=== PATIENT | female | born 1980 | race Hispanic/Latino ===

== ENCOUNTER 2018-05-31 19:19 | Emergency (ER) | payer OTHER ==
[~2018-05-31] VITALS: Ht 149.9 cm; Wt 68.9 kg
[2018-05-31 21:39] LABS: CLARITY,URINE SL CLOUDY (CLEAR); COLOR,URINE YELLOW (YELLOW); LEUKOCYTE ESTERASE ,URINE TRACE (NEGATIVE); NITRITE,URINE NEGATIVE (NEGATIVE)
[2018-05-31 21:40] LABS: BILIRUBIN,URINE NEGATIVE (NEGATIVE); KETONES,URINE NEGATIVE (NEGATIVE); PROTEIN,URINE DIPSTICK TRACE (NEGATIVE); URINE UROBILINOGEN 0.2 mg/dL (0.2 - 1)
[2018-05-31 21:41] LABS: PREGNANCY TEST, URINE NEGATIVE (NEGATIVE)
[2018-05-31 21:55] LABS: BACTERIA,URINE RARE /HPF; EPITHELIAL CELLS,URINE MODERATE /LPF; MUCUS,URINE MANY (RARE)
[2018-05-31] MEDS ORDERED: PHENAZOPYRIDINE HCL 100 MG TAB PO ONE (22:15)
[2018-05-31] MEDS ORDERED: TRIMETHOPRIM/SULFAMETHOXAZOLE 160-800 MG TAB PO ONE (22:15)
[2018-05-31] MEDS ORDERED: BACTRIM DS TAB1 EACH PO (22:16)
[2018-05-31] MEDS ORDERED: PYRIDIUM100 MG PO (22:16)
[2018-05-31 22:33] VITALS: BP 114/78
== END 2018-05-31 22:47 | disposition home or self-care (01) ==
LOC: ER 19:19
DX: R10.30 Lower abdominal pain, unspecified (principal); N30.90 Cystitis, unspecified without hematuria
CPT/HCPCS: 81001; 81025; 99283

== ENCOUNTER 2020-02-12 08:54 | Emergency (ER) | payer MEDICARE, OTHER ==
[~2020-02-12] VITALS: Ht 149.9 cm; Wt 77.1 kg
[~2020-02-12 08:54] MED LIST: BACTRIM DS TAB1 EACH PO; PYRIDIUM100 MG PO
--- OUTSIDE RECORDS SUMMARY | 2020-02-12 08:57 | XMS REPORT | Continuity of Care Document ---
Author Author [facility] t Organization [facility] t Address [address] [place] [address] Phone Unavailable Care Team Providers Care Construction Teacher Name Role Phone CLINT EARLY, Kelli DON PCP Jacy Gilliam MD Attphys Payers Payer Name Policy Type Policy Number Effective Date Expiration Date Melita Davila Medicaid [id number] 2011 00:00:00 [facility] Problems This patient has no known problems. Allergies, Adverse Reactions, Alerts Allergy Name Allergy Type Status Severity Reaction(s) Onset Date Inacti ve Date Treating Clinician Comments Source SEAFOOD DA Active SV 2019-07-27 00:00:00 [facility] Levofloxacin Allergy to Substance Active 2018-05-31 00:00:0 0 [facility] levofloxacin DA Active MO 2015-04-20 00:00:00 [facility] Medications Ordered Medication Name Filled Medication Name Start Date Stop Da te Current Medication? Ordering Clinician Indication Dosage Frequency Signature (SIG) Comments Components Source Sulfamethoxazole/Trimethoprim (Bactrim Ds Tablet) 1 Ea ch Tablet Sulfamethoxazole/Trimethoprim (Bactrim Ds Tablet) 1 Each Tablet 2018-05-31 00:00:00 2018-06-10 00:00:00 No Nanette Brandt Md 1 Twic e A Day [facility] Phenazopyridine Hcl (Pyridium) 100 Mg Tablet Phenazopy ridine Hcl (Pyridium) 100 Mg Tablet 2018-05-31 00:00:00 2018-06-03 00:00:00 Jazmin Brandt Md 100 Three Times A Day [facility] Procedures This patient has no known procedures. Encounters Start Date/Time End Date/Time En[facility] ID Source 2019-04-25 10:26:56 Outpatient [facility] [id number] 2019-10-10 15:09:11 2019-10-10 16:35:46 Office Visit Buster Augustine [facility] [id number] 2019-06-06 15:59:21 2019-06-06 16:37:27 Office Visit Buster Augustine [facility] [id number] 2018-05-31 19:19:00 2018-05-31 22:47:00 Departed Emergency Room [facility] [id number] [facility] Results Test Description Test Time Test Comments Results Result Comments Source - XR FOOT 3 + V LT 2019-01-28 15:42:00 Name: RASHI CHRISTIANSON [facility] : 1980 Age/S:38 /F [address] [facility] Unit#:[id number] Loc: [place] [address] Phys: Alise Artis NP Dis Date: PHONE #: [phone] Status: REG ER FAX #: [phone] Exam Date: 01/28/2019 Reason: pain in heel EXAMS: CPT CODE: [id number] XR FOOT 3 + [place] [address] REASON FOR EXAM: pain in heel EXAM ORDER DATE: 01/28/2019 3:08 PM Ordering Channing: Alise Artis NP PROCEDURE: - XR FOOT 3 + V LT FINDINGS: 3 views of the left foot were obtained. Diffuse osteopenia the osseous structures with narrowing of the talocalcaneal joint and significant collapse of the talus. . No evidence of fracture. The phalanges are intact. IMPRESSION: Diffuse osteopenia with severe collapse of the talus. No acute osseous abnormality at 1542 Reported and signed by: Blake Ken M.D. CC: Dc Mcelroy MD; Peter Andrews MD; Alise Artis NP Technologist: Lulu Monahan Trnscrpt Data: 01/28/2019 (8635) t.SDR.VTL Orig Print D/T: S: 01/28/2019 (4740) PAGE 1 Signed Report - CT ABD PELVIS W/O CONT 2018-09-30 11:59:00 N rudy: RASHI NASH [facility] : 1980 Age/S: 38 / F [address] [facility] Unit #: [id number] Loc: [place] [address] Phys: Dc Mcelroy MD Acct: [id number] Dis Date: Status: REG ER PHONE #: [phone] Exam Date: 09/30/2018 1130 FAX #: [phone] Reason: LLQ pain EXAMS: CPT CODE: [id number] CT ABD PELVIS W/O CONT 30638 REASON FOR EXAM: LLQ pain EXAM ORDER DATE: 09/30/2018 11:05 AM Ordering MMary Jane: Dc Mcelroy MD PROCEDURE: - CT ABD PELVIS W/O CONT axial CT images were acquired through the abdomen/pelvis at 5 mm intervals. Sagittal and coronal reformatted images were generated. Automated exposure control was utilized for this reduction. COMPARISON: Abdominal CT October 20, 2009 was reviewed FINDINGS: The ab sence of IV contrast limits sensitivity of this exam for the detection of soft tissue pathology Visualized thorax: Normal Hepatobiliary: Normal Pancreas: Mild fatty replacement Spleen: Normal GI: Normal Adrenal glands: Normal : Multiple renal stones are present bilaterally. These stones measure up to 4 mm in size (left upper renal pole). No ureterolithiasis and no hydronephrosis or hydroureter. Urinary bladder and uterus are unremarkable. There is also a 1.6 cm cortical cyst in the inferior right renal pole. Vascular structures: Normal caliber of the aorta and IVC. No significant calcified atherosclerosis. Peritoneum and retroperitoneum: No free fluid or free air or abnormal lymph nodes Musculoskeletal and abdominal wall: Small fat-containing umbilical PAGE 1 Signed Report (CONTINUED) Name: RASHI NASH [facility] : 1980 Age/S: 38 / F [address] [facility] Unit #: [id number] Loc: [place] [address] Phys: Dc Mcelroy MD Acct: [id number] Dis Date: Status: REG ER PHONE #: [phone] Exam Date: 09/30/2018 1130 FAX #: [phone] Reason: LLQ pain EXAMS: CPT CODE: [id number] CT ABD PELVIS W/O CONT 66415 <Continued> hernia measuring up to 2 cm in size with a 7 mm neck is noted. IMPRESSION: Multiple renal stones bilaterally measuring up to 4 mm in size. No hydronephrosis or perinephric fat stranding. 1.6 cm right inferior pole cortical renal cyst. Fat-containing umbilical hernia. at 1159 Reported and signed by: Blaine Levin MD CC: Dc Mcerloy MD; Peter Greenberg MD Technologist:Mera Lucas CTDI: DLP: Trnscb Date/Time: 09/30/2018 (2569) t.SDR.RR31 Orig Print D/T: S: 09/30/2018 (6435) CTDI: DLP: PAGE 2 Signed Report COMPREHENSIVE METABOLIC PANEL 2018-09-30 11:44:00 Test Item SODIUM (test code = NA) 139 mmol/L 135-148 N POTASSIUM (test code = K) 4.0 mmol/L 3.5-5.1 N CHLORIDE (test code = CL) 102 mmol/L 101-109 N CARBON DIOXIDE (test code = CO2) 26.5 mmol/L 21-32 N ANION GAP (test code = GAP) 15 mmol/L 10-20 N GLUCOSE (test code = GLU) 100 mg/dL 74-106 N BLOOD UREA NITROGEN (test code = BUN) 10 mg/dL 3-21 N CREATININE (test code = CREAT) 0.84 mg/dL 0.55-1.3 N BUN/CREATININE RATIO (test code = BUN/CREA) 11.9 10-20 N TOTAL PROTEIN (test code = PROT) 7.7 g/dL 6.5-8.4 N ALBUMIN (test code = ALB) 3.7 g/dL 3.4-4.8 N GLOBULIN (test code = GLOB) 4.0 G/DL 1-10 N ALBUMIN/GLOBULIN RATIO (test code = A/G) 0.9 RATIO 0.75-1.50 N CALCIUM (test code = CA) 9.3 mg/dL 8.4-10.2 N BILIRUBIN TOTAL (test code = BILT) 0.30 mg/dL 0.0-1.0 N SGOT/AST (test code = AST) 23 U/L 6-32 N SGPT/ALT (test code = ALT) 47 U/L 12-78 N N ote: Change in REFERENCE RANGE due to new reagent method. ALKALINE PHOSPHATASE TOTAL (test code = ALKP) 98 U/L 38-126 N COMPREHENSIVE METABOLIC [id number] 11:37:00* Test Item Value Reference Range Interpretation Comments SODIUM (test code = NA) 139 mmol/L 135-148 N POTASSIUM (test code = K) 4.0 mmol/L 3.5-5.1 N CHLORIDE (test code = CL) 102 mmol/L 101-109 N CARBON DIOXIDE (test code = CO2) 26.5 mmol/L 21-32 N ANION GAP (test code = GAP) 15 mmol/L 10-20 N GLUCOSE (test code = GLU) 100 mg/dL 74-106 N BLOOD UREA NITROGEN (test code = BUN) 10 mg/dL 3-21 N CREATININE (test code = CREAT) 0.84 mg/dL 0.55-1.3 N BUN/CREATININE RATIO (test code = BUN/CREA) 11.9 10-20 N TOTAL PROTEIN (test code = PROT) gram/dL 6.4-8.2 ALBUMIN (test code = ALB) g/dL 3.4-5.0 GLOBULIN (test code = GLOB) g/dL 2.7-4.2 ALBUMIN/GLOBULIN RATIO (test code = A/G) 0.75-1.50 CALCIUM (test code = CA) 9.3 mg/dL 8.4-10.2 N BILIRUBIN TOTAL (test code = BILT) mg/dL 0.2-1.2 SGOT/AST (test code = AST) IUnit/L 15-37 SGPT/ALT (test code = ALT) U/L 10-69 ALKALINE PHOSPHATASE TOTAL (test code = ALKP) IUnit/L 45-117 CBC W/AUTO [id number] 11:29:00* Test Item Value Reference Range Interpretation Comments WHITE BLOOD CELL (test code = WBC) 8.8 K/mm3 4.5-12.5 N RED BLOOD CELL (test code = RBC) 4.66 mill/mm3 3.7-5.2 N HEMOGLOBIN (test code = HGB) 13.4 gram/dL 11.5-15.5 N HEMATOCRIT (test code = HCT) 41.3 % 36.0-46.0 N MEAN CELL VOLUME (test code = MCV) 88.6 fL 80-98 N MEAN CELL HGB (test code = MCH) 28.8 picogram 27.0-33.0 N MEAN CELL HGB CONCETRATION (test code = MCHC) 32.4 gram/dL 33.0-36. 0 L RED CELL DISTRIBUTION WIDTH (test code = RDW) 17.2 % 11.6-16. 2 H RED CELL DISTRIBUTION WIDTH SD (test code = RDW-SD) 54.7 fL 39 .1-52.0 H PLATELET COUNT (test code = PLT) 311 K/mm3 150-450 N MEAN PLATELET VOLUME (test code = MPV) 9.1 fL 6.7-11.0 N NEUTROPHIL % (test code = NT%) 77.1 % 39.0-69.0 H LYMPHOCYTE % (test code = LY%) 16.0 % 25.0-55.0 L MONOCYTE % (test code = MO%) 6.4 % 0.0-10.0 N EOSINOPHIL % (test code = EO%) 0.3 % 0.0-5.0 N BASOPHIL % (test code = BA%) 0.2 % 0.0-1.0 N NEUTROPHIL # (test code = NT#) 6.78 K/mm3 1.8-7.7 N LYMPHOCYTE # (test code = LY#) 1.41 K/mm3 1.0-5.0 N MONOCYTE # (test code = MO#) 0.56 K/mm3 0-0.8 N EOSINOPHIL # (test code = EO#) 0.03 K/mm3 0.0-0.5 N BASOPHIL # (test code = BA#) 0.02 K/mm3 0.0-0.2 N MANUAL DIFF REQUIRED (test code = MDIFF) NO URINALYSIS [id number] 10:58:00* Test Item Value Reference Range Interpretation Comments UA COLOR (test code = COLU) YELLOW YELLOW UA APPEARANCE (test code = APPU) HAZY CLEAR A UA GLUCOSE DIPSTICK (test code = DGLUU) NORMAL mg/dL NEGATIVE UA BILIRUBIN DIPSTICK (test code = BILU) NEGATIVE mg/dL NEGATIVE UA KETONE DIPSTICK (test code = KETU) neg mg/dL NEGATIVE UA SPECIFIC GRAVITY (test code = SGU) 1.020 1.001-1.035 UA BLOOD DIPSTICK (test code = MELISSA) 25 (1+) Omid/uL NEGATIVE A UA PH DIPSTICK (test code = GRADY) 5.0 5.0-8.0 UA PROTEIN DIPSTICK (test code = PROU) neg mg/dL Neg-15 UA UROBILINIOGEN DIPSTICK (test code = URO) norm mg/dL 0.0-0.2 UA NITRITE DIPSTICK (test code = BRIT) NEGATIVE NEGATIVE UA LEUKOCYTE ESTERASE DIPSTICK (test code = LEUU) NEGATIVE uL NEGA TIVE UA WBC (test code = WBCU) 0-5 per HPF 0-5 IN SOME URINARY TRACT INFECTIONS THERE MAY NOT BE ENOUGHWBCs IN THE URINE TO TRIGGER AN AUTOMATIC (REFLEX) URINECULTURE. A SEPERATE ORDER FOR URINE CULTURE IS RECOMMENDEDIF THERE IS STRONG SUPPORT FOR A URINARY TRACT INFECTIONCLINICALLY. UA RBC (test code = RBCU) 0-3 per HPF 0-5 UA EPITHELIAL CELLS (test code = EPIU) Many (>10/hpf) per HPF Few A UA BACTERIA (test code = BACU) TRACE per HPF NONE Urine Source? Clean CatchUR HCG [id number] 10:58:00* Test Item Value Reference Range Interpretation Comments UR HCG QUAL (test code = HCGQLU) NEGATIVE This HCGQL test is NOT applicable for MALE patients.Check with nurse about probable order error.If Tumor Marker Test needed, nurse should order test "HCGTU"(Test #550.06741) Urine Source? Clean CatchURINALYSIS [id number] 10:53:00* Test Item Value Reference Range Interpretation Comments UA COLOR (test code = COLU) YELLOW YELLOW UA APPEARANCE (test code = APPU) CLEAR UA GLUCOSE DIPSTICK (test code = DGLUU) NORMAL mg/dL NEGATIVE UA BILIRUBIN DIPSTICK (test code = BILU) NEGATIVE mg/dL NEGATIVE UA KETONE DIPSTICK (test code = KETU) neg mg/dL NEGATIVE UA SPECIFIC GRAVITY (test code = SGU) 1.020 1.001-1.035 UA BLOOD DIPSTICK (test code = MELISSA) 25 (1+) Omid/uL NEGATIVE A UA PH DIPSTICK (test code = GRADY) 5.0 5.0-8.0 UA PROTEIN DIPSTICK (test code = PROU) neg mg/dL Neg-15 UA UROBILINIOGEN DIPSTICK (test code = URO) norm mg/dL 0.0-0.2 UA NITRITE DIPSTICK (test code = BRIT) NEGATIVE NEGATIVE UA LEUKOCYTE ESTERASE DIPSTICK (test code = LEUU) NEGATIVE uL NEGA TIVE UA WBC (test code = WBCU) per HPF 0-5 Urine Source? Clean CatchUR HCG [id number] 10:53:00* Test Item Value Reference Range Interpretation Comments UR HCG QUAL (test code = HCGQLU) NEGATIVE This HCGQL test is NOT applicable for MALE patients.Check with nurse about probable order error.If Tumor Marker Test needed, nurse should order test "HCGTU"(Test #550.10904) Urine Source? Clean CatchURINALYSIS [id number] 10:49:00* Test Item Value Reference Range Interpretation Comments UA COLOR (test code = COLU) YELLOW YELLOW UA APPEARANCE (test code = APPU) CLEAR UA GLUCOSE DIPSTICK (test code = DGLUU) NORMAL mg/dL NEGATIVE UA BILIRUBIN DIPSTICK (test code = BILU) NEGATIVE mg/dL NEGATIVE UA KETONE DIPSTICK (test code = KETU) neg mg/dL NEGATIVE UA SPECIFIC GRAVITY (test code = SGU) 1.020 1.001-1.035 UA BLOOD DIPSTICK (test code = MELISSA) 25 (1+) Omid/uL NEGATIVE A UA PH DIPSTICK (test code = GRADY) 5.0 5.0-8.0 UA PROTEIN DIPSTICK (test code = PROU) neg mg/dL Neg-15 UA UROBILINIOGEN DIPSTICK (test code = URO) norm mg/dL 0.0-0.2 UA NITRITE DIPSTICK (test code = BRIT) NEGATIVE NEGATIVE UA LEUKOCYTE ESTERASE DIPSTICK (test code = LEUU) NEGATIVE uL NEGA TIVE UA WBC (test code = WBCU) per HPF 0-5 Urine Source? Clean CatchUR HCG [id number] 10:49:00* Test Item Value Reference Range Interpretation Comments UR HCG QUAL (test code = HCGQLU) Urine Source? Clean CatchUrine [id number] 21:56:00* Test Item Value Reference Range Interpretation Comments Urine WBC (test code = 5821-4) 6-10 0-5 [facility] [id number] 21:56:00* Test Item Value Reference Range Interpretation Comments Urine RBC (test code = 45546-3) 11-20 0-5 H [facility] [id number] 21:56:00* Test Item Value Reference Range Interpretation Comments Urine Bacteria (test code = 34763-7) RARE NONE [facility] Epithelial [id number] 21:56:00 * Test Item Value Reference Range Interpretation Comments Urine Epithelial Cells (test code = 91398-7) MODERATE NONE [facility] [id number] 21:56:00* Test Item Value Reference Range Interpretation Comments Urine Mucus (test code = 8247-9) MANY RARE H [facility] [id number] 21:41:00* Test Item Value Reference Range Interpretation Comments Urine Test (test code = 2106-3) NEGATIVE NEGATIVE [facility] [id number] 21:40:00* Test Item Value Reference Range Interpretation Comments Urine Color (test code = 5778-6) YELLOW YELLOW [facility] [id number] 21:40:00* Test Item Value Reference Range Interpretation Comments Urine Clarity (test code = 86791-7) SL CLOUDY CLEAR [facility] Specific [id number] 21:40:00 * Test Item Value Reference Range Interpretation Comments Urine Specific [place] (test code = 5811-5) 1.020 1.010-1.02 5 [facility] [id number] 21:40:00* Test Item Value Reference Range Interpretation Comments Urine pH (test code = 09847-4) 6 5-7 [facility] Leukocyte [id number] 21:40:00* Test Item Value Reference Range Interpretation Comments Urine Leukocyte Esterase (test code = 5799-2) [facility]IVE [facility] [id number] 21:40:00* Test Item Value Reference Range Interpretation Comments Urine Nitrite (test code = 01284-5) NEGATIVE NEGATIVE [facility] [id number] 21:40:00* Test Item Value Reference Range Interpretation Comments Urine Protein (test code = 5804-0) TRACE NEGATIVE [facility] Glucose (UA)2018-05-31 21:40:00* Test Item Value Reference Range Interpretation Comments Urine Glucose (UA) (test code = 2349-9) NEGATIVE NEGATIVE [facility] [id number] 21:40:00* Test Item Value Reference Range Interpretation Comments Urine Ketones (test code = 45870-6) NEGATIVE NEGATIVE [facility] [id number] 21:40:00* Test Item Value Reference Range Interpretation Comments Urine Urobilinogen (test code = 41069-1) 0.2 0.2-1 [facility] [id number] 21:40:00* Test Item Value Reference Range Interpretation Comments Urine Bilirubin (test code = 1978-6) NEGATIVE NEGATIVE [facility] [id number] 21:40:00* Test Item Value Reference Range Interpretation Comments Urine Blood (test code = 32971-5) 2+ NEGATIVE H [facility]
--- OUTSIDE RECORDS SUMMARY | 2020-02-12 08:58 | XMS REPORT | Summary of Care ---
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 8th [address], [address] [place] [address] Allergies Comments Active Allergy Reactions Severity Noted Date Levaquin Hallucination Medium 11/03/2009 s documented as of this encounter (statuses as of 06/06/2019) Medications End Date Status Medication Sig Dispensed Refills Start Date Active famotidine (PEPCID AC) 10 Take 10 mg by 0 MG tabletIndications: mouth two Rheumatoid arthritis times daily. involving multiple sites, unspecified rheumatoid factor presence (HCCode), Encounter for monitoring of methotrexate therapy, Encounter for monitoring certolizumab therapy Active acetaminophen-codeine Take 1 Tab by 45 Tab 0 (TYLENOL #3) 300-30 MG mouth every 6 8 per tablet hours as needed for Pain. Active naproxen (NAPROSYN) 500 TAKE 1 TABLET 60 Tab 5 MG tablet BY MOUTH 8 TWICE DAILY WITH MEALS Active Certolizumab Pegol ADMINISTER 1 1 Kit 0 (CIMZIA PREFILLED) 2 X ML UNDER THE 9 200 MG/ML injection SKIN EVERY 2 WEEKS Active predniSONE (DELTASONE) 5 TAKE 2 60 Tab 0 0 MG tabletIndications: TABLETS BY 9 Rheumatoid arthritis MOUTH DAILY involving multiple sites, unspecified rheumatoid factor presence (HCCode), Encounter for monitoring of methotrexate therapy Active CIMZIA PREFILLED 2 X 200 ADMINISTER 1 Kit 0 0 MG/ML injection 200MG 9 SUBCUTANEOUS EVERY 2 WEEKS. Active naproxen (NAPROSYN) 500 Take 1 Tab by 60 Tab 5 MG tablet mouth 2 times 9 daily (with meals). Active ciprofloxacin (CIPRO) 500 Take 1 Tab by 8 Tab 0 MG tabletIndications: mouth two 9 Rheumatoid arthritis times daily. involving multiple sites, unspecified rheumatoid factor presence (HCCode), Encounter for monitoring of methotrexate therapy, Encounter for monitoring certolizumab therapy Active folic acid (FOLVITE) 1 MG Take 2 Tabs 60 Tab 11 tablet by mouth 9 daily. Active methotrexate (RHEUMATREX) TAKE 10 50 Tab 4 2.5 MG tablet TABLETS BY 9 MOUTH ONCE EVERY 7 DAYS Active omeprazole (PRILOSEC) 40 Take 1 Cap by 30 Cap 11 MG capsuleIndications: mouth daily. 9 Rheumatoid arthritis involving multiple sites, unspecified rheumatoid factor presence (HCCode), Encounter for monitoring of methotrexate therapy, OP (osteoporosis) Active predniSONE (DELTASONE) 5 TAKE 2 60 Tab 3 1 MG tablet TABLETS BY 9 MOUTH DAILY 06/06/2019 Discontinued omeprazole (PRILOSEC) 40 0 MG capsuleIndications: 6 Rheumatoid arthritis involving multiple sites, unspecified rheumatoid factor presence (HCCode), Encounter for monitoring of methotrexate therapy, OP (osteoporosis) 06/06/2019 Discontinued folic acid (FOLVITE) 1 MG Take 2 Tabs 60 Tab 11 tablet by mouth 8 daily. 06/06/2019 Discontinued azithromycin (ZITHROMAX) Take 2 tab on 6 Tab 0 250 MG tablet day 1 then 9 one tab daily for 4 more days 06/06/2019 Discontinued methotrexate (RHEUMATREX) TAKE 8 48 Tab 4 2.5 MG tablet TABLETS BY 9 MOUTH ONCE EVERY 7 DAYS 06/06/2019 Discontinued predniSONE (DELTASONE) 5 TAKE 2 60 Tab 0 0 MG tablet TABLETS BY 9 MOUTH DAILY documented as of this encounter (statuses as of 06/06/2019) Active Problems Problem Noted Date Encounter for monitoring certolizumab therapy 2015 Encounter for monitoring of methotrexate therapy Allergic rhinitis 10/15/2013 Ankle pain 08/09/2012 Knee pain 12/28/2011 Encounter for long-term (current) use of other medica tions 09/15/2011 Retinal detachment 08/19/2010 OP (osteoporosis) 08/19/2010 Preventive measure 07/02/2010 Rheumatoid arthritis (HCCode) 05/29/2009 documented as of this encounter (statuses as of 06/06/2019) Immunizations Name Administration Dates Next Due Influenza (whole) 07/09/2009 Influenza Quad-PF 06/06/2019 Influenza whole 07/02/2010 documented as of this encounter Social History Date Tobacco Use Types Packs/Day Years Used Quit: 09/05/2006 Former Smoker Smokeless Tobacco: Never Used Drinks/Week oz/Week Comments Alcohol Use No Sex Assigned at Date Recorded Not on file Industry Job Start Date Occupation Not on file Not on file Not on file Travel End Travel History Travel Start No recent travel history available. documented as of this encounter Last Filed Vital Signs Reading Time Taken Comments Vital Sign 128/89 06/06/2019 4:09 PM CDT Blood Pressure 102 06/06/2019 4:09 PM CDT Pulse 36.7 C (98 F) 06/06/2019 4:09 PM CDT Temperature 18 06/06/2019 4:09 PM CDT Respiratory Rate 97% 06/06/2019 4:09 PM CDT Oxygen Saturation - - Inhaled Oxygen Concentration 76.1 kg (167 lb 12.8 oz) 06/06/2019 4:09 PM CDT Weight 144.8 cm (4' 9") 06/06/2019 4:09 PM CDT Height 36.31 06/06/2019 4:09 PM CDT Body Mass Index documented in this encounter Progress Notes * Buster Gilliam MD - 06/06/2019 4:15 PM CDT HISTORY OF PRESENT ILLNESS: Erika Hernandez is a 39 y.o. year old female who presents for follow up and co ntinued management of JRA Past Rheumatic History Dx'ed with JRA at age of 3 at [facility] and also followed by [place]um in [place] with NSAIDS, gold salts, steroids, started methotrexate in highschool. Uveitis followed by Dr Weaver at [facility] optho. Previously on enbrel, remicaide, simponi and orencia. Interval History Last visit in February 2019 Currently on prednisone 5 mg and cimzia q6tblce and MTX 15 mg weekly + folic ac id. A little more stiff in wrists Left ankle helped by last steroid injection Tolerating medications well. No injection site reactions. No longer c/o nausea. Gets frequent UTI and URIs, discussed hygiene, handwashing etc Denies oral ulcers, rashes, photosensitivity, eye pain, chest pain, SOB, Raynaud 's. REVIEW OF SYSTEMS No fevers, chills, sweats, rigors No weight change, anorexia, fatigue, malaise No headache, alopecia, eye redness, photophobia, burning, dry eyes No nasal congestion, sores, oral sores, sore throat, dry mouth No cough or sputum No swollen LN in neck or axilla No pleurisy, SOB, CAVAZOS, PND. No chest pain or palpitations No abdominal pain, nausea, emesis, diarrhea No lower extremity swelling No paresthesias No skin rash, no psoriatic like lesions, no nodules, no livedoid rash, nail carson ing, no digital ulcers No Raynauds No heat/cold intolerance No depression, + anxiety PAST MEDICAL HISTORY Past Medical History: Diagnosis Date Legal blindness Osteoporosis Retinal detachment Rheumatoid arthritis(714.0) Uveitis-rheumatoid arthritis syndrome (HCCode) PAST SURGICAL HISTORY Past Surgical History: Procedure Laterality Date HX CATARACT REMOVAL HX CORNEAL TRANSPLANT HX EYE SURGERY HX RETINAL DETACHMENT SURGERY MEDICATIONS Current Outpatient Medications on File Prior to Visit Medication Sig Dispense Refill acetaminophen-codeine (TYLENOL #3) 300-30 MG per tablet Take 1 Tab by mouth every 6 hours as needed for Pain. 45 Tab 0 azithromycin (ZITHROMAX) 250 MG tablet Take 2 tab on day 1 then one tab jordana y for 4 more days 6 Tab 0 Certolizumab Pegol (CIMZIA PREFILLED) 2 X 200 MG/ML injection ADMINISTER 1 M L UNDER THE SKIN EVERY 2 WEEKS 1 Kit 0 CIMZIA PREFILLED 2 X 200 MG/ML injection ADMINISTER 200MG SUBCUTANEOUS EVERY 2 WEEKS. 1 Kit 0 famotidine (PEPCID AC) 10 MG tablet Take 10 mg by mouth two times daily. folic acid (FOLVITE) 1 MG tablet Take 2 Tabs by mouth daily. 60 Tab 11 methotrexate (RHEUMATREX) 2.5 MG tablet TAKE 8 TABLETS BY MOUTH ONCE EVERY 7 DAYS 48 Tab 4 naproxen (NAPROSYN) 500 MG tablet TAKE 1 TABLET BY MOUTH TWICE DAILY WITH ME ALS 60 Tab 5 omeprazole (PRILOSEC) 40 MG capsule predniSONE (DELTASONE) 5 MG tablet TAKE 2 TABLETS BY MOUTH DAILY 60 Tab 0 predniSONE (DELTASONE) 5 MG tablet TAKE 2 TABLETS BY MOUTH DAILY 60 Tab 0 No current facility-administered medications on file prior to visit. ALLERGIES Allergies as of 06/06/2019 - Reviewed 02/07/2019 Allergen Reaction Noted Levaquin Hallucinations 11/03/2009 FAMILY HISTORY FH: Family History Problem Relation Name Age of Onset Seizures Mother Diabetes Father SOCIAL HISTORY Social History Tobacco Use Smoking status: Former Smoker Last attempt to quit: 09/05/2006 Years since quittin.7 Smokeless tobacco: Never Used Substance Use Topics Alcohol use: No Drug use: No PHYSICAL EXAM VS : There were no vitals taken for this visit. GENERAL: NAD, pleasant, healthy appearing HEENT : sclera anicteric, OP clear, left eye blindness NECK : supple no LAD, no TM CV : RRR no mgr CHEST : CTA bilateral with no rales no wheezes, equal inspiratory movement bilat erally ABD : soft NT ND BS+ no HSM EXT : no cce Neuro : grossly intact, normal gait, motor exam with nl strength in UE and LE sy mmetrically SKIN no rash, no nail pits, no onycholysis, no nodules MUSCULOSKELETAL EXAM : DIP , PIP and MCP without synovitis but with marked chronic deformities with the exception of right 3rd PIP with synovitis WRIST - decrease ROM to palmar and dorsi flexion, trace synovitis and effusions, neg Tinels and Phalens (bilateral) ELBOWS - no effusion, no nodules or tophi, FROM, + flexion contracture, nontende r, no tendonitis(bilateral) SHOULDERS - slight decrease ROM nontender (bilateral) HIPS - slight decrease ROM nontender, neg for trochanteric bursitis (bilateral) KNEES -no effusion, no synovitis, slight decrease ROM, nontender, no crepitus, n eg prepatellar and anserine bursa tenderness (bilateral) ANKLES left ankle with effusion and tenderness, right no synovitis, dec ROM in i nv/eversion, dorsi/plantar, nontender (bilateral) MTPs neg squeeze tenderness, no synovitis (bilateral) FM trigger points neg ADDITIONAL DATA Labs and Xrays were reviewed. IMPRESSION AND PLAN 1. Rheumatoid arthritis : - with 2 flares, leo in left ankle. And now in wrists - will cont pred - increase Methotrexate to 25 mg, continue Cimzia- has done fairly well on this combination - check inflammatory markers, CBC, CMP . - Tylenol 3 prn not refilled this time, did not need it, but will refill prn 2. Encounter for monitoring of methotrexate and certolizumab pegol - on methotrexate. Check CBC and CMP Q 8-weeks - On TNFi. Last Quant gold Negative in 2018 3. 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 5. Anxiety - on zoloft 6. HTN - PCP RTC in 4 months. Buster Gilliam [facility] documented in this encounter Plan of Treatment Care Team Description Date Type Specialty Buster Gilliam MD [address] [id number] 10/10/2019 Office Visit Rheumatology Order Schedule Name Type Priority Associated Diag noses Every 8 Weeks for 6 Occurrences starting 06/06/2019 until 06/05/2020 COMPREHENSIVE METABOLIC Lab Routine Rheuma toid arthritis PANEL involving multiple sites, unspecified rheumatoid factor presence (HCCode) Encounter for monitoring of methotrexate therapy Encounter for monitoring certolizumab therapy Every 8 Weeks for 6 Occurrences starting 06/06/2019 until 06/05/2020 CBC W/AUTO DIFF WITH Lab Routine Rheumatoi d arthritis PLATELETS involving multiple sites, unspecified rheumatoid factor presence (HCCode) Encounter for monitoring of methotrexate therapy Encounter for monitoring certolizumab therapy Ordered: 06/06/2019 URINALYSIS, COMPLETE Lab Routine Rheumatoi d arthritis W/REFLEX TO CULTURE involving multiple sites, unspecified rheumatoid factor presence (HCCode) Encounter for monitoring of methotrexate therapy Health Maintenance Due Date Last Done Comments TETANUS SHOT (ADULT) 1995 BMI FOLLOW UP PLAN 1998 HIV SCREENING 1998 CERVICAL CANCER SCREENING 2001 3 YEAR FOLLOW UP FLU VACCINE > 6 MONTHS 04/05/2019 06/12/2018, documented as of this encounter Results Not on filedocumented in this encounter Visit Diagnoses Diagnosis Rheumatoid arthritis involving multiple sites, unspecified rheumatoid factor presence (HCCode) - Primary Need for influenza vaccination Need for prophylactic vaccination and i noculation against influenza Encounter for monitoring of methotrexat e therapy Encounter for monitoring certolizumab t herapy Encounter for therapeutic drug monitori ng OP (osteoporosis) Osteoporosis, unspecified documented in this encounter Insurance Type Payer Benefit Subscriber ID Effective Phone Address Plan / Dates Group Medicaid [facility] xxxxxxxxx 2014- [address] [facility] Present [id number] [place] [address] documented as of this encounter Advance Directives Patient Sugar Coating Hand Explanation Type Date Recorded Advance Directives and Living Will Power of Biology Laboratory Assistant
--- OUTSIDE RECORDS SUMMARY | 2020-02-12 08:58 | XMS REPORT | Summary of Care ---
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 8th [address], [address] [place] [address] Allergies Comments Active Allergy Reactions Severity Noted Date Levaquin Hallucination Medium 11/03/2009 s documented as of this encounter (statuses as of 10/10/2019) Medications End Date Status Medication Sig Dispensed [...] Encounter for monitoring of methotrexate therapy Active naproxen (NAPROSYN) 500 Take 1 Tab [...] 11 tablet by mouth 9 daily. Active omeprazole (PRILOSEC) 40 Take 1 Cap by 30 Cap 11 MG capsuleIndications: mouth daily. 9 Rheumatoid arthritis involving multiple sites, unspecified rheumatoid factor presence (HCCode), Encounter for monitoring of methotrexate therapy, OP (osteoporosis) Active predniSONE (DELTASONE) 5 TAKE 2 60 Tab 3 1 MG tablet TABLETS BY 9 MOUTH DAILY Active CIMZIA PREFILLED 2 X 200 ADMINISTER 1 Kit 3 1 MG/ML injection 200MG 9 SUBCUTANEOUS EVERY 2 WEEKS. Active methotrexate (RHEUMATREX) TAKE 8 48 Tab 1 2.5 MG tablet TABLETS BY 0 MOUTH ONCE EVERY 7 DAYS Status Hospital, Clinic, or Ordered Dose Route Frequency Start End Date Other Facility Date Administered Medication Ended methylPREDNISolone IX ONCE 10/10/19 acetate (DEPO-MEDROL) 40 20 0 MG/ML 30 mg, lidocaine 1% (10 mg/mL) 1 mLIndications: Chronic pain of left ankle documented as of this encounter (statuses as of 10/10/2019) Active Problems Problem Noted Date Encounter for monitoring certolizumab therapy 2015 Encounter for monitoring of methotrexate therapy Allergic rhinitis 10/15/2013 Ankle pain 08/09/2012 Knee pain 12/28/2011 Encounter for long-term (current) use of other medica tions 09/15/2011 Retinal detachment 08/19/2010 OP (osteoporosis) 08/19/2010 Preventive measure 07/02/2010 Rheumatoid arthritis (HCCode) 05/29/2009 documented as of this encounter (statuses as of 10/10/2019) Immunizations Name Administration Dates Next Due Influenza [...] Signs Reading Time Taken Comments Vital Sign 142/96 10/10/2019 3:45 PM LPN PER DIEM Blood Pressure 64 10/10/2019 3:45 PM LPN PER DIEM Pulse 36.9 C (98.4 F) 10/10/2019 3:45 PM LPN PER DIEM Temperature 17 10/10/2019 3:45 PM LPN PER DIEM Respiratory Rate 98% 10/10/2019 3:45 PM LPN PER DIEM Oxygen Saturation - - Inhaled Oxygen Concentration 79 kg (174 lb 3.2 oz) 10/10/2019 3:45 PM LPN PER DIEM Weight 144.8 cm (4' 9") 10/10/2019 3:45 PM LPN PER DIEM Height 37.7 10/10/2019 3:45 PM LPN PER DIEM Body Mass Index documented in this encounter Progress Notes * Buster Gilliam MD - 10/10/2019 3:15 PM LPN PER DIEM HISTORY OF PRESENT ILLNESS: Erika Hernandez is a 39 y.o. year old female who presents for follow up and co ntinued management of JRA Past Rheumatic History Dx'ed with JRA at age of 3 at [facility] and also followed [place]um [place] with NSAIDS, gold salts, steroids, started methotrexate in [facility]. Uveitis followed by Dr Weaver at [facility] optho. Previously on enbrel, remicaide, simponi and orencia. Interval History Last visit in Jun 2019 Currently on prednisone 5 mg and cimzia m4llpiv and MTX 15 mg weekly + folic ac id. A little more stiff in wrists and left ankle troubling her with increased swelli ng Left ankle helped by last steroid injection and wants to get it done again Tolerating medications well. No injection site reactions. No longer c/o nausea. Gets frequent UTI and URIs, discussed hygiene, handwashing etc Has some dysuria Denies oral ulcers, rashes, photosensitivity, eye pain, chest pain, SOB, Raynaud 's. Tolerating methotrexate well without any nausea, vomiting, oral sores, hair loss , headache, dyspnea or cough. No missed doses. Tolerating the TNF inhibitor injections without injection site reactions, rash, fever, chills, sweats, URI symptoms at this time, cough, sputum, dysuria, or oth er infectious symptoms. No missed doses. REVIEW OF SYSTEMS No fevers, chills, sweats, [...] as needed for Pain. 45 Tab 0 Certolizumab Pegol (CIMZIA PREFILLED) 2 X 200 MG/ML injection ADMINISTER 1 M L UNDER THE SKIN EVERY 2 WEEKS 1 Kit 0 CIMZIA PREFILLED 2 X 200 MG/ML injection ADMINISTER 200MG SUBCUTANEOUS EVERY 2 WEEKS. 1 Kit 3 ciprofloxacin (CIPRO) 500 MG tablet Take 1 Tab by mouth two times daily. 8 T ab 0 famotidine (PEPCID AC) 10 MG tablet Take 10 mg by mouth two times daily. folic acid (FOLVITE) 1 MG tablet Take 2 Tabs by mouth daily. 60 Tab 11 methotrexate (RHEUMATREX) 2.5 MG tablet TAKE 8 TABLETS BY MOUTH ONCE EVERY 7 DAYS 48 Tab 1 naproxen (NAPROSYN) 500 MG tablet Take 1 Tab by mouth 2 times daily (with me als). 60 Tab 5 naproxen (NAPROSYN) 500 MG tablet TAKE 1 TABLET BY MOUTH TWICE DAILY WITH ME ALS 60 Tab 5 omeprazole (PRILOSEC) 40 MG capsule Take 1 Cap by mouth daily. 30 Cap 11 predniSONE (DELTASONE) 5 MG tablet TAKE 2 TABLETS BY MOUTH DAILY 60 Tab 3 predniSONE (DELTASONE) 5 MG tablet TAKE 2 TABLETS BY MOUTH DAILY 60 Tab 0 No current facility-administered medications on file prior to visit. ALLERGIES Allergies as of 10/10/2019 - Reviewed 10/10/2019 Allergen Reaction Noted Levaquin Hallucinations 11/03/2009 FAMILY HISTORY FH: Family History Problem Relation Name Age of Onset Seizures Mother Diabetes Father SOCIAL HISTORY Social History Tobacco Use Smoking status: Former Smoker Last attempt to quit: 09/05/2006 Years since quittin.1 Smokeless tobacco: Never Used Substance Use Topics Alcohol use: No Drug use: No PHYSICAL EXAM VS : Blood pressure (!) 142/96, pulse 64, temperature 98.4 F (36.9 C), resp. rate 17, height 4' 9" (1.448 m), weight 174 lb 3.2 oz (79 kg), SpO2 98 %. GENERAL: NAD, pleasant, healthy appearing HEENT : [...] AND PLAN 1. Rheumatoid arthritis : - flaring in ankle, other joints are a little better - will cont pred -cont Methotrexate to 25 mg, continue Cimzia- has done fairly well on this combi nation - check inflammatory markers, CBC, CMP . - Tylenol 3 prn not refilled this time, did not need it, but will refill prn - inject left ankle 2. Encounter for monitoring of methotrexate and [...] PCP RTC in 4 months. Buster Gilliam [facility] PROCEDURE NOTE PROCEDURE : Left ankle Injection with Depomedrol INDICATION/DX : left ankle swelling and Pain Consent obtained from patient orally after discussion of risks of infection, azul n, bleeding, skin color change, osteopenia. Sterile preparation of skin with chloroprep Ethyl chloride for local anesthesia 27 g needle, 30 mg depomderol (0.75 ml of 40 mg/ml) with 1 cc 1% lidocaine for t he left ankle via anterior approach Patient tolerated the procedure well, no complications. Patient will call if co ndition changes, the patient has our contact information. Buster Gilliam [facility] PER DIEM documented in this encounter Plan of Treatment Care Team Description Date Type Specialty Buster Gilliam MD [address] [id number] 02/20/2020 Office Visit Rheumatology Order Schedule Name Type Priority Associated Diag noses Ordered: 10/10/2019 COMPREHENSIVE METABOLIC Lab Routine Rheuma toid arthritis PANEL involving multiple sites, unspecified rheumatoid factor presence (HCCode) Ordered: 10/10/2019 CBC W/AUTO DIFF WITH Lab Routine Rheumatoi d arthritis PLATELETS involving multiple sites, unspecified rheumatoid factor presence (HCCode) Ordered: 10/10/2019 URINALYSIS, COMPLETE Lab Routine Rheumatoi d arthritis W/REFLEX TO CULTURE involving multiple sites, unspecified rheumatoid factor presence (HCCode) Every 8 Weeks for 6 Occurrences starting 10/10/2019 until 10/09/2020 CBC W/AUTO DIFF WITH Lab Routine Rheumatoi d arthritis PLATELETS involving multiple sites, unspecified rheumatoid factor presence (HCCode) Encounter for monitoring of methotrexate therapy Every 8 Weeks for 6 Occurrences starting 10/10/2019 until 10/09/2020 COMPREHENSIVE METABOLIC Lab Routine Rheuma toid arthritis PANEL involving multiple sites, unspecified rheumatoid factor presence (HCCode) Encounter for monitoring of methotrexate therapy Health Maintenance Due Date Last Done Comments TETANUS SHOT (ADULT) 1995 BMI FOLLOW UP PLAN 1998 HIV SCREENING 1998 CERVICAL CANCER SCREENING 2001 3 YEAR FOLLOW UP FLU VACCINE > 6 MONTHS Completed 06/06/2019, 04/2018, 07/02/2010 documented as of this encounter Results Not on filedocumented in this encounter Visit Diagnoses Diagnosis Rheumatoid arthritis involving multiple sites, unspecified rheumatoid factor presence (HCCode) - Primary Encounter for monitoring of methotrexat e therapy Chronic pain of left ankle documented in this encounter Administered Medications Action Date Dose Rate Site Medication Order MAR Action 10/10/2019 4:41 PM LPN PER DIEM Left Ank le methylPREDNISolone acetate (DEPO-MEDROL) Given by 40 MG/ML 30 mg, lidocaine 1% (10 mg/mL) 1 mL Intra-articular, ONCE, 1 dose, 10/10/19 at 1630, Left ankle, documented in this encounter Insurance Type Payer Benefit Subscriber ID Effective Phone Address Plan / Dates Group Medicaid [facility] xxxxxxxxx 2014- [address] [facility] Present [id number] [place] [address] documented as of this encounter Advance Directives For more information, please contact: [phone] Patient Address Change Clerk Explanation Type Date Recorded Advance Directives and Living Will Power of Associate Web Developer
--- NOTE | 2020-02-12 10:09 | Diagnostic Imaging Report ---
EXAMINATION: CT of the abdomen and pelvis without contrast. TECHNIQUE: Spiral CT images of the abdomen and pelvis were performed from the lung bases to the lesser trochanters. No intravenous contrast was given per renal stone protocol. Coronal and sagittal reformatted images were obtained. COMPARISON: None. CLINICAL HISTORY:Abdominal pain, pain with urination DISCUSSION: ABSENCE OF INTRAVENOUS CONTRAST DECREASES SENSITIVITY FOR DETECTION OF FOCAL LESIONS AND VASCULAR PATHOLOGY. ABDOMEN/PELVIS: LOWER THORAX: Lung bases are unremarkable. No pleural effusion. HEPATOBILIARY:Hepatic parenchyma is diffusely hypoattenuating compatible with steatosis. No focal hepatic lesion or intrahepatic biliary ductal dilatation. The gallbladder is unremarkable. SPLEEN: No splenomegaly or focal splenic lesion. PANCREAS: No focal masses or ductal dilatation. ADRENALS: No adrenal nodules. KIDNEYS/URETERS: Multiple bilateral renal calculi measure up to 6 mm in the right upper pole collecting system, and a cluster of calcifications measures up to 1.2 cm in the left upper pole collecting system. 1.7 cm hypoattenuating parenchymal lesion in the right lower pole, average internal attenuation 5-10 Hounsfield units, likely a simple cyst. No hydronephrosis or ureteral calculi. There are, however 2 adjacent 3 mm calculi in the dependent urinary bladder to the left of midline. PELVIC ORGANS/BLADDER: Urinary bladder is incompletely distended. Uterus is anteflexed and appears normal. No adnexal mass. PERITONEUM/RETROPERITONEUM: No ascites or pneumoperitoneum. LYMPH NODES: No pelvic sidewall, retroperitoneal, or mesenteric lymphadenopathy. VESSELS: Limited evaluation in the absence of intravenous contrast. The abdominal aorta is non-aneurysmal. GI TRACT: The large bowel shows no distention or wall thickening. The appendix is not definitively identified. No right lower quadrant inflammatory changes. The stomach is collapsed with prominent rugal folds. No small bowel dilatation to suggest obstruction. BONES AND SOFT TISSUES: Partial fusion of the sacroiliac joints. Probable posttraumatic deformity of the posterolateral right ninth rib. No osseous destructive lesion. No focal soft tissue abnormality. IMPRESSION: Multiple bilateral renal calculi measure up to 6 mm on the right and 12 mm on the left. 2 small additional calculi within the dependent urinary bladder. No ureteral calculi, hydronephrosis or significant perinephric inflammation. Hepatic steatosis. Signed by: Dr. Maximilian Lemon M.D. on 02/12/2020 10:06 AM
[2020-02-12 10:20] VITALS: BP 163/79
--- NOTE | 2020-02-12 10:20 | Emergency Department Note ---
History of Present Illnes History of Present Illness Chief Complaint: Genitourinary History of Present Illness This is a 39 year old female with jake pubic abdominal pain. Historian: Patient Arrival Mode: Car Onset (how long ago): day(s) (2) Location: suprapubic Quality: sharp Radiation: Denies non-radiation, Denies back, Denies neck, Denies extremity, Denies abdomen, Denies periumbilical, Denies flank, Denies proximal, Denies distal, Denies other Severity: moderate Onset quality: gradual Duration (how long): day(s) (2) Timing of current episode: constant Progression: worsening Chronicity: new Context: Denies recent illness, Denies recent surgery, Denies recent immobilization, Denies recent travel, Denies trauma/injury, Denies new medications, Denies hx of DVT/PE, Denies non-compliance w/ medications, Denies other Relieving factors: none Exacerbating factors: none Associated symptoms: Reports denies other symptoms Treatments prior to arrival: none Past Medical/Family History Physician Review I have reviewed the patient's past medical and family history. Any updates have been documented here. Past Medical History Recent Fever: No Clinical Suspicion of Infectio: No New/Unexplained Change in Ment: No Past Medical History: Hypertension, Depression Other Medical History: blind, RA Past Surgical History: Other Surgery: 9 eye surgeries Social History Smoking Cessation: Never Smoker Counseling Performed: No Alcohol Use: None Any Illegal Drug Use: No TB Exposure/Symptoms: No Physically hurt or threatened: No Other Last Tetanus: unk Any Pre-Existing Lines (PICC,: No Is patient up to date on immun: Yes Last Flu: 2020 Last Pneumovax: unk Review of Systems Review of Systems Constitutional: Reports no symptoms EENTM: Reports no symptoms Cardiovascular: Reports no symptoms Respiratory: Reports no symptoms Gastrointestinal: Reports abdominal pain Genitourinary: Reports no symptoms Musculoskeletal: Reports no symptoms Integumentary: Reports no symptoms Neurological: Reports no symptoms Psychological: Reports no symptoms Endocrine: Reports no symptoms Hematological/Lymphatic: Reports no symptoms Review of other systems All other systems reviewed and negative. Physical Exam Related Data Allergies: Coded Allergies: levofloxacin (Verified Allergy, Unknown, 05/31/18) Triage Vital Signs Vital Signs Date Time Temp Pulse Resp B/P (MAP) Pulse Ox O2 Delivery O2 Flow Rate FiO2 02/12/20 09:11 97.2 115 18 141/100 96 Vital signs reviewed: Yes Physical Exam CONSTITUTIONAL Constitutional: Reports well-developed, Reports well-nourished HENT HENT: Reports normocephalic, Reports atraumatic, Reports oropharynx tee r/moist, Reports nose normal HENT L/R: Reports left ext ear normal, Reports right ext ear normal EYES Eyes: Reports PERRL, Reports conjunctivae normal NECK Neck: Reports ROM normal PULMONARY Pulmonary: Reports effort normal, Reports breath sounds normal CARDIOVASCULAR Cardiovascular: Reports regular rhythm, Reports heart sounds normal, Reports capillary refill normal, Reports normal rate GASTROINTESTINAL Abdominal: Reports soft, Reports bowel sounds normal, Reports tender (suprapubic) GENITOURINARY Genitourinary: Reports exam deferred SKIN Skin: Reports warm, Reports dry MUSCULOSKELETAL Musculoskeletal: Reports ROM normal NEUROLOGICAL Neurological: Reports alert, Reports oriented x 3, Reports no gross motor or sensory deficits PSYCHOLOGICAL Psychological: Reports mood/affect normal, Reports judgement normal Results Laboratory Lab results reviewed: Yes Imaging Imaging results reviewed: Yes Assessment & Plan Medical Decision Making MDM uti..kidney stone Reassessment Reassessment time: 10:18 Reassessment better Assessment & Plan Final Impression: (1) Abdominal pain (2) Kidney stones (3) Kidney stone on right side (4) Kidney stone on left side (5) UTI (urinary tract infection) Depart Disposition: HOME, SELF-CARE Last Vital Signs Date Time Temp Pulse Resp B/P (MAP) Pulse Ox O2 Delivery O2 Flow Rate FiO2 02/12/20 09:11 97.2 115 18 141/100 96 Home Meds Active Scripts Phenazopyridine Hcl (PYRIDIUM) 100 Mg Tablet, 100 MG PO TID for 3 Days, #9 Prov:FCO RODAS DO 05/31/18 Sulfamethoxazole/Trimethoprim (BACTRIM DS TABLET) 1 Each Tablet, 1 TAB PO BID for 10 Days, #20 TAB 0 Refills Prov:FCO RODAS DO 05/31/18 LARY HERBERT MD Feb 12, 2020 10:20
[2020-02-12] MEDS ORDERED: MACROBID 100 M100 MG PO (10:22)
[2020-02-12] MEDS ORDERED: PYRIDIUM100 MG PO (10:22)
[2020-02-12] MEDS ORDERED: AUGMENTIN 875-1 EACH PO (10:22)
== END 2020-02-12 10:28 | disposition home or self-care (01) ==
LOC: FSED 08:54
DX: R10.30 Lower abdominal pain, unspecified (principal); R30.0 Dysuria; N20.0 Calculus of kidney; N39.0 Urinary tract infection, site not specified; M06.9 Rheumatoid arthritis, unspecified
CPT/HCPCS: 74176; 81003; 87086; 99284

== ENCOUNTER 2020-05-05 18:19 | Emergency (ER) | payer OTHER ==
[~2020-05-05] VITALS: Ht 149.9 cm; Wt 77.1 kg
[~2020-05-05 18:19] MED LIST changes: +AUGMENTIN 875-1 EACH PO; +MACROBID 100 M100 MG PO
--- OUTSIDE RECORDS SUMMARY | 2020-05-05 20:13 | XMS REPORT | Continuity of Care Document ---
Author Author [facility] t Organization [facility] Address [address] [place] [address] Phone Unavailable Care Team Providers Care Medical Doctor Md Name Role Phone MD Kelli GREENBERG MD PCP LARY HERBERT Attphys Unavailable Jacy Gilliam MD Attphys Payers Payer Name Policy Type Policy Number Effective Date Expiration Date Melita Davila Medicaid [id number] 2011 00:00:00 [facility] Problems Condition Name Condition Details Condition Category Status Onset Date Resolution Date Last Treatment Date Treating Clinician Comments Source Abdominal pain Problem Active [facility] Calculus of left kidney Problem Active [facility] Urinary tract infection Problem Active [facility] Allergies, Adverse Reactions, Alerts Allergy Name Allergy Type Status Severity Reaction(s) Onset Date Inacti ve Date Treating Clinician Comments Source SEAFOOD DA Active SV 2019-07-27 00:00:00 [facility] Levofloxacin Allergy to substance Active 2018-05-31 00:00:0 0 [facility] levofloxacin DA Active [place] 2015-04-20 00:00:00 [facility] Social History Social Habit Start Date Stop Date Quantity Comments Source Sex Assigned At 1980 00:00:00 1980 00:00:00 Female [facility] Medications Ordered Medication Name Filled Medication Name Start Date Stop Da te Current Medication? Ordering Clinician Indication Dosage Frequency Signature (SIG) Comments Components Source Amoxicillin/Potassium Clav (Augmentin 875-125 Tablet) 1 Each TABLET Amoxicillin/Potassium Clav (Augmentin 875-125 Tablet) 1 Each TABLET 2020-02-12 10:22:00 Yes 14 Daily [facility] Nitrofurantoin Monohyd/M-Cryst (Macrobid 100 Mg Capsul e) 100 Mg CAPSULE Nitrofurantoin Monohyd/M-Cryst (Macrobid 100 Mg Capsule) 100 Mg CAPSULE 2020-02-12 10:22:00 Yes 100 Twice Daily With M eals [facility] Phenazopyridine Hcl (Pyridium) 100 Mg TABLET Phenazopy ridine Hcl (Pyridium) 100 Mg TABLET 2020-02-12 10:22:00 Yes 100 Three Times A Day [facility] Phenazopyridine Hcl (Pyridium) 100 Mg TABLET Phenazopy ridine Hcl (Pyridium) 100 Mg TABLET 2018-05-31 22:16:00 Yes 100 Three Times A Day [facility] Sulfamethoxazole/Trimethoprim (Bactrim Ds Tablet) 1 Ea ch TABLET Sulfamethoxazole/Trimethoprim (Bactrim Ds Tablet) 1 Each TABLET 2018-05-31 22:16:00 Yes 1 Twice A Day [facility] Vital Signs Vital Name Observation Time Observation Value Comments Source Body Temperature 2020-02-12 10:20:00 98.5 [degF] [facility] Weight 2020-02-12 09:11:00 170 [lb_av] [facility] BMI (Body Mass Index) 2020-02-12 09:11:00 34.3 kg/m2 [facility] Procedures This patient has no known procedures. Plan of Care Planned Activity Planned Date Details Comments Source Instructions Kidney Stones [facility] Instructions Urinary Tract Infection - Women [facility] Encounters Start Date/Time End Date/Time En[facility] ID Source 2019-04-25 10:26:56 Outpatient [facility] [id number] 2020-02-12 08:54:00 2020-02-12 10:28:00 Departed Emergency Room [address] [facility] [id number] [facility] 2019-10-10 15:09:11 2019-10-10 16:35:46 Office Visit Buster Augustine [facility] [id number] 2019-06-06 15:59:21 2019-06-06 16:37:27 Office Visit Buster Augustine [facility] [id number] 2018-05-31 19:19:00 2018-05-31 22:47:[address] [facility] [id number] [facility] Results Test Description Test Time Test Comments Results Result Comments Source CT ABD/PEL WO CONTRAST-HOPD 2020-02-12 09:54:00 [place] [address] Patient Name: RASHI NASH MR #: [id number] : 1980 Age/Sex: 39/F Req #: [id number] Adm Physician: Ordered by: LARY HERBERT MD Report #: [id number] Location: [facility] Room/Bed: Procedure: HOPD/CT ABD/PEL WO CONTRAST-HOPD Exam Date: 02/12/20 Exam Time: 949 REPORT STATUS: Signed EXAMINATION: CT of the abdomen and pelvis without contrast. TECHNIQUE: Spiral CT images of the abdomen and pelvis were performed from the lung bases to the lesser trochanters. No intravenous contrast was given per renal stone protocol. Coronal and sagittal reformatted images were obtained. COMPARISON: None. CLINICAL HISTORY:Abdominal pain, pain with urination DISCUSSION: ABSENCE OF INTRAVENOUS CONTRAST DECREASES SENSITIVITY FOR DETECTION OF FOCAL LESIONS AND VASCULAR PATHOLOGY. ABDOMEN/PELVIS: LOWER THORAX: Lung bases are unremarkable. No pleural effusion. HEPATOBILIARY:Hepatic parenchyma is diffusely hypoattenuating compatible with steatosis. No focal hepatic lesion or intrahepatic biliary ductal dilatation. The gallbladder is unremarkable. SPLEEN: No splenomegaly or focal splenic lesion. PANCREAS: No focal masses or ductal dilatation. ADRENALS: No adrenal nodules. KIDNEYS/URETERS: Multiple bilateral renal calculi measure up to 6 mm in the right upper pole collecting system, and a cluster of calcifications measures up to 1.2 cm in the left upper pole collecting system. 1.7 cm hypoattenuating parenchymal lesion in the right lower pole, average internal attenuation 5-10 Hounsfield units, likely a simple cyst. No hydronephrosis or ureteral calculi. There are, however 2 adjacent 3 mm calculi in the dependent urinary bladder to the left of midline. PELVIC ORGANS/BLADDER: Urinary bladder is incompletely distended. Uterus is anteflexed and appears normal. No adnexal mass. PERITONEUM/RETROPERITONEUM: No ascites or pneumoperitoneum. LYMPH NODES: No pelvic sidewall, retroperitoneal, or mesenteric lymphadenopathy. VESSELS: Limited evaluation in the absence of intravenous contrast. The abdominal aorta is non-aneurysmal. GI TRACT: The large bowel shows no distention or wall thickening. The appendix is not definitively identified. No right lower quadrant inflammatory changes. The stomach is collapsed with prominent rugal folds. No small bowel dilatation to suggest obstruction. BONES AND SOFT TISSUES: Partial fusion of the sacroiliac joints. Probable posttraumatic deformity of the posterolateral right ninth rib. No osseous destructive lesion. No focal soft tissue abnormality. IMPRESSION: Multiple bilateral renal calculi measure up to 6 mm on the right and 12 mm on the left. 2 small additional calculi within the dependent urinary bladder. No ureteral calculi, hydronephrosis or significant perinephric inflammation. Hepatic steatosis. Signed by: Dr. Nathan Lemon M.D. on 02/12/2020 10:06 AM Dictated By: NATHAN LEMON MD 1006 Transcribed By: JEFF on 02/12/20 1006 COPY TO: LARY HERBERT MD - XR FOOT 3 + V LT 2019-01-28 15:42:00 Name: RASHI CHRISTIANSON [facility] : 1980 Age/S:38 /F [address] [facility] Unit#:[id number] Loc: [place] [address] Phys: Alise Artis NP Dis Date: PHONE #: [phone] Status: REG ER FAX #: [phone] Exam Date: 01/28/2019 Reason: pain in heel EXAMS: CPT CODE: [id number] XR FOOT 3 + [place] [address] REASON FOR EXAM: pain in heel EXAM [...] NP Technologist: Lulu Monahan Trnscrpt Data: 01/28/2019 (1541) t.JOSE Orig Print D/T: S: 01/28/2019 (1699) PAGE 1 Signed Report - CT ABD PELVIS W/O CONT 2018-09-30 11:59:00 N rudy: RASHI NASH [facility] : 1980 Age/S: 38 / F [address] [facility] Unit #: [id number] Loc: [place] [address] Phys: Dc Mcelroy MD Acct: [id number] Dis Date: Status: REG ER PHONE #: [phone] Exam Date: 09/30/2018 1130 FAX #: [phone] Reason: LLQ pain EXAMS: CPT CODE: [id number] CT ABD PELVIS W/O CONT 97669 REASON FOR EXAM: LLQ pain EXAM ORDER DATE: 09/30/2018 11:05 AM Ordering M.D.: Dc Mcelroy MD PROCEDURE: - CT ABD [...] lymph nodes Musculoskeletal and abdominal wall: Small fat- containing umbilical PAGE 1 Signed Report (CONTINUED) Name: RASHI NASH [facility] : 1980 Age/S: 38 / F [address] [facility] Unit #: [id number] Loc: [place] [address] Phys: Dc Mcelroy MD Acct: [id number] Dis Date: Status: REG ER PHONE #: [phone] Exam Date: 09/30/2018 1130 FAX #: [phone] Reason: LLQ pain EXAMS: CPT CODE: [id number] CT ABD PELVIS W/O CONT 61753 <Continued> hernia measuring up to 2 cm in size with a 7 mm neck is noted. IMPRESSION: Multiple renal stones bilaterally measuring up to 4 mm in size. No hydronephrosis or perinephric fat stranding. 1.6 cm right inferior pole cortical renal cyst. Fat-containing umbilical hernia. at 1159 Reported and signed by: Blaine Levin MD CC: Dc Mcelroy MD; Peter Greenberg MD Technologist:Mera Lucas CTDI: DLP: Trnscb Date/Time: 09/30/2018 (0999) [id number] Orig Print D/T: S: 09/30/2018 (0023) CTDI: DLP: PAGE 2 Signed Report COMPREHENSIVE [...] ALKP) 98 U/L 38-126 N COMPREHENSIVE METABOLIC [id number] 11:37:00* Test Item Value Reference Range Interpretation [...] code = ALKP) IUnit/L 45-117 CBC W/AUTO [id number] 11:29:00* Test Item Value Reference Range Interpretation [...] REQUIRED (test code = MDIFF) NO URINALYSIS [id number] 10:58:00* Test Item Value Reference Range Interpretation [...] HPF NONE Urine Source? Clean CatchUR HCG [id number] 10:58:00* Test Item Value Reference Range Interpretation Comments UR HCG QUAL (test code = HCGQLU) NEGATIVE This HCGQL test is NOT applicable for MALE patients.Check with nurse about probable order error.If Tumor Marker Test needed, nurse should order test "HCGTU"(Test #550.03024) Urine Source? Clean CatchURINALYSIS [id number] 10:53:00* Test Item Value Reference Range Interpretation [...] HPF 0-5 Urine Source? Clean CatchUR HCG [id number] 10:53:00* Test Item Value Reference Range Interpretation Comments UR HCG QUAL (test code = HCGQLU) NEGATIVE This HCGQL test is NOT applicable for MALE patients.Check with nurse about probable order error.If Tumor Marker Test needed, nurse should order test "HCGTU"(Test #550.67410) Urine Source? Clean CatchURINALYSIS [id number] 10:49:00* Test Item Value Reference Range Interpretation [...] HPF 0-5 Urine Source? Clean CatchUR HCG [id number] 10:49:00* Test Item Value Reference Range Interpretation Comments UR HCG QUAL (test code = HCGQLU) Urine Source? Clean CatchUrine [id number] 21:56:00* Test Item Value Reference Range Interpretation Comments Urine WBC (test code = 5821-4) 6-10 0-5 [facility] [id number] 21:56:00* Test Item Value Reference Range Interpretation Comments Urine RBC (test code = 50305-5) 11-20 0-5 H [facility] [id number] 21:56:00* Test Item Value Reference Range Interpretation Comments Urine Bacteria (test code = 17845-5) RARE NONE [facility] Epithelial [id number] 21:56:00 * Test Item Value Reference Range Interpretation Comments Urine Epithelial Cells (test code = 99415-2) MODERATE NONE [facility] [id number] 21:56:00* Test Item Value Reference Range Interpretation Comments Urine Mucus (test code = 8247-9) MANY RARE H [facility] [id number] 21:41:00* Test Item Value Reference Range Interpretation Comments Urine Test (test code = 2106-3) NEGATIVE NEGATIVE [facility] [id number] 21:40:00* Test Item Value Reference Range Interpretation Comments Urine Color (test code = 5778-6) YELLOW YELLOW [facility] [id number] 21:40:00* Test Item Value Reference Range Interpretation Comments Urine Clarity (test code = 26042-0) SL CLOUDY CLEAR [facility] Specific [id number] 21:40:00 * Test Item Value Reference Range Interpretation Comments Urine Specific [place] (test code = 5811-5) 1.020 1.010-1.02 5 [facility] [id number] 21:40:00* Test Item Value Reference Range Interpretation Comments Urine pH (test code = 53396-0) 6 5-7 [facility] Leukocyte [id number] 21:40:00* Test Item Value Reference Range Interpretation Comments Urine Leukocyte Esterase (test code = 5799-2) TRACE NEGATIVE H [facility] [id number] 21:40:00* Test Item Value Reference Range Interpretation Comments Urine Nitrite (test code = 32767-7) NEGATIVE NEGATIVE [facility] [id number] 21:40:00* Test Item Value Reference Range Interpretation Comments Urine Protein (test code = 5804-0) TRACE NEGATIVE H [facility] Glucose (UA)2018-05-31 21:40:00* Test Item Value Reference Range Interpretation Comments Urine Glucose (UA) (test code = 2349-9) NEGATIVE NEGATIVE [facility] [id number] 21:40:00* Test Item Value Reference Range Interpretation Comments Urine Ketones (test code = 18166-4) NEGATIVE NEGATIVE [facility] [id number] 21:40:00* Test Item Value Reference Range Interpretation Comments Urine Urobilinogen (test code = 27873-4) 0.2 0.2-1 [facility] [id number] 21:40:00* Test Item Value Reference Range Interpretation Comments Urine Bilirubin (test code = 1978-6) NEGATIVE NEGATIVE [facility] [id number] 21:40:00* Test Item Value Reference Range Interpretation Comments Urine Blood (test code = 04251-6) 2+ NEGATIVE H [facility]
--- NOTE | 2020-05-05 20:51 | Diagnostic Imaging Report ---
EXAM: CT Abdomen and Pelvis WITHOUT contrast INDICATION: Hx KS, hematuria, suprapubic back pain COMPARISON: CT abdomen and pelvis dated 03/03/2020. TECHNIQUE: Abdomen and pelvis were scanned utilizing a multidetector helical scanner from the lung base to the pubic symphysis without administration of IV contrast. Absence of intravenous contrast decreases sensitivity for detection of focal lesions and vascular pathology. Coronal and sagittal reformations were obtained. Routine protocol was performed. IV CONTRAST: None ORAL CONTRAST: Water COMPLICATIONS: None RADIATION DOSE: Total DLP: 778.23 mGy-cm Estimated effective dose: (DLP x 0.015 x size factor) mSv CTDIvol has been reviewed. It is below the limits set by the Radiation Protocol Committee (RPC). FINDINGS: LINES and TUBES: None. LOWER THORAX: Lung bases are unremarkable. No pleural effusion. HEPATOBILIARY:Hepatic steatosis. No focal hepatic lesion or intrahepatic biliary ductal dilatation. The gallbladder is unremarkable. SPLEEN: The spleen is enlarged measuring 15.2 cm. No splenic lesion. PANCREAS: No focal masses or ductal dilatation. ADRENALS: No adrenal nodules. KIDNEYS/URETERS: Again noted are multiple unchanged bilateral nonobstructive renal calculi measure up to 6 mm in the right upper pole and 1.2 cm in the left upper pole. 1.7 cm right lower simple cyst unchanged. No hydronephrosis or ureteral calculi. PELVIC ORGANS/BLADDER: Urinary bladder is incompletely distended. The previously seen 3 mm calculi in the urinary bladder has passed. Uterus is anteflexed and appears normal. No adnexal mass. PERITONEUM/RETROPERITONEUM: No ascites or pneumoperitoneum. LYMPH NODES: No pelvic sidewall, retroperitoneal, or mesenteric lymphadenopathy. VESSELS: Limited evaluation in the absence of intravenous contrast. The abdominal aorta is non-aneurysmal. GI TRACT: No bowel wall thickening or obstruction. BONES: Partial fusion of the sacroiliac joints. No osseous destructive lesion. SOFT TISSUES: No soft tissue abnormality. IMPRESSION: 1. The previously seen 3 mm calculi in the urinary bladder has passed. 2. Unchanged multiple bilateral nonobstructive renal calculi as described. Signed by: Levy Kulkarni MD on 05/05/2020 8:47 PM
[2020-05-05] MEDS ORDERED: BACTRIM DS TAB1 EACH PO (21:33)
--- NOTE | 2020-05-05 21:44 | Emergency Department Note ---
History of Present Illnes History of Present Illness Chief Complaint: Genitourinary History of Present Illness This is a 40 year old female with suprapubic cramping since Apr 27. Had + urine dip stick test at that time and started on keflex. States no improvement in sx. Similar sx in past with UTIs. Also has low back pain which she localizes to hips and states this is a typical pain for her RA. No fever chills. No vomiting. No diarrhea, but has had loose stools since starting antibiotics. Hx of kidney stones, but this pain is not as severe and a different type of pain than kidney stones. LMP in November, but very irregular periods and this is typical for her. Denies sexual activity. Historian: Patient Arrival Mode: Car Process Line Operator Required: No Onset (how long ago): week(s) Radiation: Reports non-radiation Severity: moderate Duration (how long): day(s) Timing of current episode: constant Progression: unchanged Chronicity: new Context: Denies trauma/injury Relieving factors: other Exacerbating factors: other Associated symptoms: Denies chest pain, Denies fever/chills, Denies loss of appetite, Denies malaise, Denies nausea/vomiting, Denies shortness of breath, Denies syncope Treatments prior to arrival: other (see above) Past Medical/Family History Physician Review I have reviewed the patient's past medical and family history. Any updates have been documented here. Past Medical History Recent Fever: No Clinical Suspicion of Infectio: No New/Unexplained Change in Ment: No Past Medical History: Hypertension Other Medical History: RA, UVEITIS, LEGALLY BLIND Past Surgical History: Other Surgery: EYE SURG Social History Smoking Cessation: Never Smoker Counseling Performed: No Alcohol Use: None Any Illegal Drug Use: No Other Last Tetanus: unk Any Pre-Existing Lines (PICC,: No Review of Systems Review of Systems Constitutional: Reports no symptoms; Denies fever EENTM: Denies nose congestion, Denies throat pain Cardiovascular: Denies chest pain, Denies palpitations Respiratory: Denies pain with cough, Denies dyspnea Gastrointestinal: Reports abdominal pain, Reports diarrhea; Denies constipation, Denies nausea, Denies vomiting Genitourinary: Reports pain; Denies discharge, Denies dysuria, Denies hematuria Musculoskeletal: Reports back pain; Denies joint pain, Denies joint swelling Integumentary: Denies rash Psychological: Reports no symptoms Endocrine: Reports no symptoms Hematological/Lymphatic: Reports no symptoms Physical Exam Related Data Allergies: Coded Allergies: levofloxacin (Verified Allergy, Unknown, 05/31/18) Triage Vital Signs Vital Signs Date Time Temp Pulse Resp B/P (MAP) Pulse Ox O2 Delivery O2 Flow Rate FiO2 05/05/20 18:58 99.0 104 18 155/97 98 Room Air Physical Exam CONSTITUTIONAL Constitutional: Present well-developed, Present well-nourished HENT HENT: Present normocephalic, Present atraumatic, Present oropharynx clear/moist, Present nose normal EYES Eyes: Reports PERRL, Reports conjunctivae normal NECK Neck: Present ROM normal PULMONARY Pulmonary: Present effort normal, Present breath sounds normal CARDIOVASCULAR Cardiovascular: Present regular rhythm, Present heart sounds normal, Present capillary refill normal, Present normal rate GASTROINTESTINAL Abdominal: Present soft, Present nontender, Present bowel sounds normal; Absent distension, Absent tender, Absent guarding, Absent mass, Absent left CVA tenderness, Absent right CVA tenderness GENITOURINARY Genitourinary: Present exam deferred SKIN Skin: Present warm, Present dry MUSCULOSKELETAL Musculoskeletal: Present ROM normal NEUROLOGICAL Neurological: Present alert, Present oriented x 3, Present no gross motor or sensory deficits PSYCHOLOGICAL Psychological: Present mood/affect normal, Present thought content normal Results Laboratory Laboratory comments UA: Glu, Nit, Yesenia, ket, cj all neg. Trace blood. HCG negative. WBC 12.3, HGB 14.1, HCT 43.7, PLT 311. BMP WNL Imaging Imaging Comments EXAM: CT Abdomen and Pelvis WITHOUT contrast INDICATION: Hx KS, hematuria, suprapubic back pain COMPARISON: CT abdomen and pelvis dated 03/03/2020. TECHNIQUE: Abdomen and pelvis were scanned utilizing a multidetector helical scanner from the lung base to the pubic symphysis without administration of IV contrast. Absence of intravenous contrast decreases sensitivity for detection of focal lesions and vascular pathology. Coronal and sagittal reformations were obtained. Routine protocol was performed. IV CONTRAST: None ORAL CONTRAST: Water COMPLICATIONS: None RADIATION DOSE: Total DLP: 778.23 mGy-cm Estimated effective dose: (DLP x 0.015 x size factor) mSv CTDIvol has been reviewed. It is below the limits set by the Radiation Protocol Committee (RPC). FINDINGS: LINES and TUBES: None. LOWER THORAX: Lung bases are unremarkable. No pleural effusion. HEPATOBILIARY:Hepatic steatosis. No focal hepatic lesion or intrahepatic biliary ductal dilatation. The gallbladder is unremarkable. SPLEEN: The spleen is enlarged measuring 15.2 cm. No splenic lesion. PANCREAS: No focal masses or ductal dilatation. ADRENALS: No adrenal nodules. KIDNEYS/URETERS: Again noted are multiple unchanged bilateral nonobstructive renal calculi measure up to 6 mm in the right upper pole and 1.2 cm in the left upper pole. 1.7 cm right lower simple cyst unchanged. No hydronephrosis or ureteral calculi. PELVIC ORGANS/BLADDER: Urinary bladder is incompletely distended. The previously seen 3 mm calculi in the urinary bladder has passed. Uterus is anteflexed and appears normal. No adnexal mass. PERITONEUM/RETROPERITONEUM: No ascites or pneumoperitoneum. LYMPH NODES: No pelvic sidewall, retroperitoneal, or mesenteric lymphadenopathy. VESSELS: Limited evaluation in the absence of intravenous contrast. The abdominal aorta is non-aneurysmal. GI TRACT: No bowel wall thickening or obstruction. BONES: Partial fusion of the sacroiliac joints. No osseous destructive lesion. SOFT TISSUES: No soft tissue abnormality. IMPRESSION: 1. The previously seen 3 mm calculi in the urinary bladder has passed. 2. Unchanged multiple bilateral nonobstructive renal calculi as described. Signed by: Levy Velásquez MD on 05/05/2020 8:47 PM Dictated By: LEVY VELÁSQUEZ MD 46 Transcribed By: JEFF on 05/05/202046 Assessment & Plan Medical Decision Making MDM Pt with suprapubic pain and + OTC urine dipstick on 04/27. No improvement despite on keflex. Concern for hematuria today given fact patient has kidney stone history. Concern for immunocompromise state due to prednisone and metheltrexate use. CT negative for ureterolithiasis. While today's UA does not indicate infection, the patient has been on antibiotics. The negative UA could be because of a partially treated UTI. We'll change antibiotics to Bactrim. The patient has an allergy to Levaquin. Reassessment Reassessment time: 21:38 Reassessment Feels better. Assessment & Plan Final Impression: (1) UTI (urinary tract infection) (2) Abdominal pain Depart Disposition: HOME, SELF-CARE Last Vital Signs Date Time Temp Pulse Resp B/P (MAP) Pulse Ox O2 Delivery O2 Flow Rate FiO2 05/05/20 18:58 99.0 104 18 155/97 98 Room Air Home Meds Active Scripts Sulfamethoxazole/Trimethoprim (BACTRIM DS TABLET) 1 Each Tablet, 1 TAB PO BID for 10 Days, #20 TAB Prov:JORGE GANN MD 05/05/20 Phenazopyridine Hcl (PYRIDIUM) 100 Mg Tablet, 100 MG PO TID, #10 TAB Prov:LARY HERBERT MD 02/12/20 Amoxicillin/Potassium Clav (AUGMENTIN 875-125 TABLET) 1 Each Tablet, 14 MG PO DAILY, #30 TAB Prov:LARY HERBERT MD 02/12/20 Nitrofurantoin Monohyd/M-Cryst (MACROBID 100 MG CAPSULE) 100 Mg Capsule, 100 MG PO BIDWM, #14 CAP Prov:LARY HERBERT MD 02/12/20 Phenazopyridine Hcl (PYRIDIUM) 100 Mg Tablet, 100 MG PO TID for 3 Days, #9 Prov:FCO RODAS DO 05/31/18 Sulfamethoxazole/Trimethoprim (BACTRIM DS TABLET) 1 Each Tablet, 1 TAB PO BID for 10 Days, #20 TAB 0 Refills Prov:FCO RODAS DO 05/31/18 JORGE GANN MD May 05, 2020 19:52
[2020-05-05 21:46] VITALS: BP 150/92
== END 2020-05-05 21:40 | disposition home or self-care (01) ==
LOC: FSED 19:50
DX: R10.30 Lower abdominal pain, unspecified (principal); N39.0 Urinary tract infection, site not specified; M54.5 Low back pain; I10 Essential (primary) hypertension; M06.9 Rheumatoid arthritis, unspecified; H54.8 Legal blindness, as defined in USA
CPT/HCPCS: 74176; 80048; 81003; 81025; 85025; 99283

== ENCOUNTER 2020-05-18 14:49 | Emergency (ER) | payer OTHER ==
[~2020-05-18] VITALS: Ht 149.9 cm; Wt 77.1 kg
--- NOTE | 2020-05-18 15:35 | Emergency Department Note ---
History of Present Illnes History of Present Illness Chief Complaint: dysuria History of Present Illness This is a 40 year old female with a history of rheumatoid arthritis, hypertension and recurrent UTI, who presents for evaluation of dysuria that has worsened since she stopped her antibiotics 3 days ago. Patient was last seen here on 05/05/20, and was treated with Bactrim for a possible urinary tract infection. She also had a CT of the abdomen at that time that showed nonobstructive bilateral renal calculi. Patient came to that visit on oral antibiotics that she had left at home, so a urine culture was not sent. Patient describes burning on urination, along with urinary frequency . Patient states that she took a dose of medicine yesterday, for yeast, she tends to get this if she takes antibiotics. She denies any vaginal discharge, fever, chills, or vomiting. Patient has had some mild nausea along with some mild suprapubic discomfort, that she describes similar to cramps. She states that her PCP is working on a referral for her to see Urology, but this has not yet been scheduled. Patient takes methotrexate along with the biologic, so she is immunocompromised. She has stopped these medications, since she was seen here last, due to the infection. Historian: Patient Arrival Mode: Car Windows Architect Required: No Onset (how long ago): day(s) (4) Location: urinary system/urethra Quality: burning Radiation: Denies non-radiation, Denies back, Denies neck, Denies extremity, Denies flank Severity: moderate Onset quality: sudden Duration (how long): day(s) (4) Timing of current episode: constant Progression: unchanged Chronicity: recurrent Context: Reports recent illness (Pt with history of recurrent UTI;); Denies trauma/injury Relieving factors: none Exacerbating factors: none Associated symptoms: Reports nausea/vomiting (no vomiting), Reports shortness of breath; Denies fever/chills, Denies headaches, Denies loss of appetite Treatments prior to arrival: none Risk factors: Recurrent UTI, immunosuppressed Previous service: medications given Past Medical/Family History Physician Review I have reviewed the patient's past medical and family history. Any updates have been documented here. Past Medical History Recent Fever: No Clinical Suspicion of Infectio: No New/Unexplained Change in Ment: No Past Medical History: Hypertension Other Medical History: RA, UVEITIS, LEGALLY BLIND Past Surgical History: Other Surgery: EYE SURG Social History Smoking Cessation: Never Smoker Alcohol Use: None Any Illegal Drug Use: No TB Exposure/Symptoms: No Physically hurt or threatened: No Family History Family history of heart diseas: No Other Last Tetanus: unk Any Pre-Existing Lines (PICC,: No Is patient up to date on immun: No Review of Systems Review of Systems Constitutional: Denies chills, Denies fever, Denies weakness EENTM: Reports no symptoms Cardiovascular: Denies chest pain Respiratory: Denies cough, Denies dyspnea Gastrointestinal: Reports abdominal pain (mild, suprapubic discomfort;), Reports nausea; Denies constipation, Denies diarrhea, Denies vomiting Genitourinary: Reports dysuria, Reports frequency; Denies discharge, Denies hematuria Musculoskeletal: Reports no symptoms Integumentary: Reports no symptoms; Denies change in color, Denies rash Review of other systems: All other systems negative Physical Exam Related Data Allergies: Coded Allergies: levofloxacin (Verified Allergy, Unknown, 05/31/18) Vital signs reviewed: Yes Physical Exam CONSTITUTIONAL Constitutional: Present well-developed, Present well-nourished; Absent distressed, Absent ill appearing HENT HENT: Present normocephalic, Present atraumatic, Present oropharynx clear/moist, Present nose normal; Absent nasal congestion, Absent rhinorrhea HENT L/R: Present left ext ear normal, Present right ext ear normal EYES Eyes: Reports PERRL, Reports conjunctivae normal NECK Neck: Present ROM normal, Present supple; Absent cervical adenopathy PULMONARY Pulmonary: Present effort normal, Present breath sounds normal; Absent respiratory distress CARDIOVASCULAR Cardiovascular: Present regular rhythm, Present heart sounds normal, Present capillary refill normal, Present normal rate; Absent murmur GASTROINTESTINAL Abdominal: Present soft, Present nontender, Present bowel sounds normal; Absent distension, Absent tender, Absent guarding, Absent rebound, Absent left CVA tenderness GENITOURINARY Genitourinary: Present exam deferred SKIN Skin: Present warm, Present dry; Absent rash MUSCULOSKELETAL Musculoskeletal: Present ROM normal NEUROLOGICAL Neurological: Present alert, Present oriented x 3 PSYCHOLOGICAL Psychological: Present mood/affect normal, Present behavior normal Results Laboratory Lab results reviewed: Yes Laboratory comments UA - blo - small Urine Preg - negative; Assessment & Plan Medical Decision Making MDM Discussed with patient that her urinalysis does not suggest an acute urinary tract infection. Her urine only showed a small amount of blood. Since she's had recurrent symptoms, a urine culture was sent. She just finished antibiotics 3 days ago. Patient will take Pyridium, for the next several days to help with symptoms, and hold the antibiotics. She may start the antibiotics if she has recurrent symptoms, when she stops the Pyridium in 3 days. Patient states that she is in the process of being referred to a urologist at this time. She strongly encouraged to follow-up with her primary care physician tomorrow, to see whether out on that referral. Patient should return to emergency room if she develops high fever, persistent vomiting, or otherwise worsening symptoms. - Increase water intake, with a goal of drinking 1 gallon/day (190 ml); - Take the Phenazopyridine, as directed, for urinary pain. - Follow-up with Urology, JANELLE, regarding recurrent urinary symptoms. Assessment & Plan Final Impression: (1) Dysuria (2) Urethritis (3) Nausea (4) Rheumatoid arthritis Depart Disposition: HOME, SELF-intermediate Meds Active Scripts Phenazopyridine Hcl (PHENAZOPYRIDINE HCL) 100 Mg Tablet, 100 MG PO TID for urinary pain for 3 Days, #9 TAB 0 Refills Prov:STACY BARONE MD 05/18/20 Ondansetron (ONDANSETRON ODT) 8 Mg Tab.rapdis, 4 MG PO Q6H PRN for NAUSEA, #20 TAB 0 Refills Prov:STACY BARONE MD 05/18/20 Cefdinir (OMNICEF) 300 Mg Capsule, 1 TAB PO BID for INFECTION for 10 Days, #20 CAP 0 Refills Prov:STACY BARONE MD 05/18/20 Sulfamethoxazole/Trimethoprim (BACTRIM DS TABLET) 1 Each Tablet, 1 TAB PO BID for 10 Days, #20 TAB Prov:JORGE GANN MD 05/05/20 Phenazopyridine Hcl (PYRIDIUM) 100 Mg Tablet, 100 MG PO TID, #10 TAB Prov:LARY HERBERT MD 02/12/20 Amoxicillin/Potassium Clav (AUGMENTIN 875-125 TABLET) 1 Each Tablet, 14 MG PO DAILY, #30 TAB Prov:LARY HERBERT MD 02/12/20 Nitrofurantoin Monohyd/M-Cryst (MACROBID 100 MG CAPSULE) 100 Mg Capsule, 100 MG PO BIDWM, #14 CAP Prov:LARY HERBERT MD 02/12/20 Phenazopyridine Hcl (PYRIDIUM) 100 Mg Tablet, 100 MG PO TID for 3 Days, #9 Prov:FCO RODAS DO 05/31/18 Sulfamethoxazole/Trimethoprim (BACTRIM DS TABLET) 1 Each Tablet, 1 TAB PO BID for 10 Days, #20 TAB 0 Refills Prov:FCO RODAS DO 05/31/18 STACY BARONE MD May 18, 2020 15:35
--- OUTSIDE RECORDS SUMMARY | 2020-05-18 15:45 | XMS REPORT | Continuity of Care Document ---
Author Author [facility] t Organization [facility] Address [address] [place] [address] Phone Unavailable Care Team Providers Care Agronomist Name Role Phone MD Kelli GREENBERG MD PCP Briana GANN Attphys Unavailable LARY HERBERT Attphys Unavailable Tawana EARLY, Jacy Goins Attphys Payers Payer Name Policy Type Policy Number Effective Date Expiration Date Melita Davila [employer] [id number] 2006 00:00:00 2078 00:00:00 [facility] [employer] Medicaid [id number] 2011 00:00:00 [facility] Problems Condition Name Condition Details Condition Category Status Onset Date Resolution Date Last Treatment Date Treating Clinician Comments Source Abdominal pain Problem Active [facility] Calculus of left kidney Problem Active [facility] Urinary tract infection Problem Active [facility] Allergies, Adverse Reactions, Alerts Allergy Name Allergy Type Status Severity Reaction(s) Onset Date Inacti ve Date Treating Clinician Comments Source SEAFOOD DA Active SV 2019-07-27 00:00:00 [facility] Levofloxacin Allergy to substance Active 2018-05-31 00:00:0 0 [facility] levofloxacin DA Active [place] 2015-04-20 00:00:00 [facility] Social History Social Habit Start Date Stop Date Quantity Comments Source Sex Assigned At 1980 00:00:00 1980 00:00:00 Female [facility] Medications Ordered Medication Name Filled Medication Name Start Date Stop Da te Current Medication? Ordering Clinician Indication Dosage Frequency Signature (SIG) Comments Components Source Sulfamethoxazole/Trimethoprim (Bactrim Ds Tablet) 1 Ea ch TABLET Sulfamethoxazole/Trimethoprim (Bactrim Ds Tablet) 1 Each TABLET 2020-05-05 21:33:00 Yes 1 Twice A Day [facility] Amoxicillin/Potassium Clav (Augmentin 875-125 Tablet) 1 Each TABLET Amoxicillin/Potassium Clav (Augmentin 875-125 Tablet) 1 Each TABLET 2020-02-12 10:22:00 Yes 14 Daily [facility] Nitrofurantoin Monohyd/M-Cryst (Macrobid 100 Mg Capsul e) 100 Mg CAPSULE Nitrofurantoin Monohyd/M-Cryst (Macrobid 100 Mg Capsule) 100 Mg CAPSULE 2020-02-12 10:22:00 Yes 100 Twice Daily With M eals [facility] Phenazopyridine Hcl (Pyridium) 100 Mg TABLET Phenazopy ridine Hcl (Pyridium) 100 Mg TABLET 2020-02-12 10:22:00 Yes 100 Three Times A Day [facility] Phenazopyridine Hcl (Pyridium) 100 Mg TABLET Phenazopy ridine Hcl (Pyridium) 100 Mg TABLET 2018-05-31 22:16:00 Yes 100 Three Times A Day [facility] Sulfamethoxazole/Trimethoprim (Bactrim Ds Tablet) 1 Ea ch TABLET Sulfamethoxazole/Trimethoprim (Bactrim Ds Tablet) 1 Each TABLET 2018-05-31 22:16:00 Yes 1 Twice A Day [facility] Vital Signs Vital Name Observation Time Observation Value Comments Source Body Temperature 2020-05-05 21:46:00 99.0 [degF] [facility] Weight 2020-05-05 18:58:00 170 [lb_av] [facility] BMI (Body Mass Index) 2020-05-05 18:58:00 34.3 kg/m2 [facility] Body Temperature 2020-02-12 10:20:00 98.5 [degF] [facility] Weight 2020-02-12 09:11:00 170 [lb_av] [facility] BMI (Body Mass Index) 2020-02-12 09:11:00 34.3 kg/m2 [facility] Procedures This patient has no known procedures. Plan of Care Planned Activity Planned Date Details Comments Source Instructions Urinary Tract Infection - Women [facility] Encounters Start Date/Time End Date/Time Encounter Type Admission Type Att[facility] Care Department Encounter ID Source 2019-04-25 10:26:56 Outpatient [id number] 2020-05-05 19:50:00 2020-05-05 21:40:00 Departed Emergency Room 1 JORGE GANN [facility] [id number] [facility] 2020-02-12 08:54:00 2020-02-12 10:28:00 Departed Emergency Room 1 LARY HERBERT [facility] [id number] [facility] 2019-10-10 15:09:11 2019-10-10 16:35:46 Office Visit [facility] [id number] 2019-06-06 15:59:21 2019-06-06 16:37:27 Office Visit [facility] [id number] 2018-05-31 19:19:00 2018-05-31 22:47:00 Departed Emergency Room [facility] [id number] [facility] Results Test Description Test Time Test Comments Results Result Comments Source CT ABD/PEL WO CONTRAST-HOPD 2020-05-05 20:37:00 [facility] [address] [address] Patient Name: RASHI NASH MR #: [id number] : 1980 Age/Sex: 40/F Req #: [id number] Adm Physician: Ordered by: JORGE GANN MD Report #: [id number] Location: [facility] Room/Bed: Procedure: [id number] HOPD/CT ABD/PEL WO CONTRAST-HOPD Exam Date: 05/05/20 Exam Time: 2023 REPORT STATUS: Signed EXAM: CT Abdomen and Pelvis WITHOUT contrast INDICATION: Hx KS, hematuria, suprapubic back pain COMPARISON: CT abdomen and pelvis dated 03/03/2020. TECHNIQUE: Abdomen and pelvis were scanned utilizing a multidetector helical scanner from the lung base to the pubic symphysis without administration of IV contrast. Absence of intravenous contrast decreases sensitivity for detection of focal lesions and vascular pathology. Coronal and sagittal reformations were obtained. Routine protocol was performed. IV CONTRAST: None ORAL CONTRAST: Water COMPLICATIONS: None RADIATION DOSE: Total DLP: 778.23 mGy-cm Estimated effective dose: (DLP x 0.015 x size factor) mSv CTDIvol has been reviewed. It is below the limits set by the Radiation Protocol Committee (RPC). FINDINGS: LINES and TUBES: None. LOWER THORAX: Lung bases are unremarkable. No pleural effusion. HEPATOBILIARY:Hepatic steatosis. No focal hepatic lesion or intrahepatic biliary ductal dilatation. The gallbladder is unremarkable. SPLEEN: The spleen is enlarged measuring 15.2 cm. No splenic lesion. PANCREAS: No focal masses or ductal dilatation. ADRENALS: No adrenal nodules. KIDNEYS/U RETERS: Again noted are multiple unchanged bilateral nonobstructive renal calculi measure up to 6 mm in the right upper pole and 1.2 cm in the left upper pole. 1.7 cm right lower simple cyst unchanged. No hydronephrosis or ureteral calculi. PELVIC ORGANS/BLADDER: Urinary bladder is incompletely distended. The previously seen 3 mm calculi in the urinary bladder has passed. Uterus is anteflexed and appears normal. No adnexal mass. PERITONEUM/RETROPERITONEUM: No ascites or pneumoperitoneum. LYMPH NODES: No pelvic sidewall, retroperitoneal, or mesenteric lymphadenopathy. VESSELS: Limited evaluation in the absence of intravenous contrast. The abdominal aorta is non-aneurysmal. GI TRACT: No bowel wall thickening or obstruction. BONES: Partial fusion of the sacroiliac joints. No osseous destructive lesion. SOFT TISSUES: No soft tissue abnormality. IMPRESSION: 1. The previously seen 3 mm calculi in the urinary bladder has passed. 2. Unchanged multiple bilateral nonobstructive renal calculi as described. Signed by: Levy Velásquez MD on 05/05/2020 8:47 PM Dictated By: LEVY VELÁSQUEZ MD 46 Transcribed By: JEFF on 05/05/202046 COPY TO: JORGE GANN MD CT ABD/PEL WO CONTRAST-HOPD 2020-02-12 09:54:[address] [address] Patient Name: RASHI NASH MR #: [id number] : 1980 Age/Sex: 39/F Req #: [id number] Adm Physician: Ordered by: LARY HERBERT MD Report #: [id number] Location: [facility] Room/Bed: Procedure: HOPD/CT ABD/PEL WO CONTRAST-HOPD Exam Date: 02/12/20 Exam Time: 0950 REPORT STATUS: Signed EXAMINATION: CT [facility] the [...] [facility] : 1980 Age/S:38 /F [address] [facility] Unit#:[id number] Loc: [place] [address] Phys: Alise Artis NP Dis Date: PHONE #: [phone] Status: REG ER FAX #: [phone] Exam Date: 01/28/2019 Reason: pain in heel EXAMS: CPT CODE: [id number] XR FOOT 3 + [place] [address] REASON FOR EXAM: pain in heel EXAM [...] MD; Alise Artis NP Technologist: Lulu Monahan Trnprrpt Data: 01/28/2019 (2791) Leon Orig Print D/T: S: 01/28/2019 (1160) PAGE 1 Signed Report - CT ABD PELVIS W/O CONT 2018-09-30 11:59:00 N rudy: RASHI NASH [facility] : 1980 Age/S: 38 / F [address] [facility] Unit #: [id number] Loc: [place] [address] Phys: Dc Mcelroy MD Acct: [id number] Dis Date: Status: REG ER PHONE #: [phone] Exam Date: 09/30/2018 1130 FAX #: [phone] Reason: LLQ pain EXAMS: CPT CODE: [id number] CT ABD PELVIS W/O CONT 80874 REASON FOR EXAM: LLQ pain EXAM ORDER [...] : 1980 Age/S: 38 / F [address] [facility] Unit #: [id number] Loc: [place] [address] Phys: Dc Mcelroy MD Acct: [id number] Dis Date: Status: REG ER PHONE #: [phone] Exam Date: 09/30/2018 1130 FAX #: [phone] Reason: LLQ pain EXAMS: CPT CODE: [id number] CT ABD PELVIS W/O CONT 84555 <Continued> hernia measuring up to 2 cm [...] Technologist:Mera Lucas CTDI: DLP: Trnscb Date/Time: 09/30/2018 (7292) [id number] Orig Print D/T: S: 09/30/2018 (2636) CTDI: DLP: PAGE 2 Signed Report COMPREHENSIVE [...] ALKP) 98 U/L 38-126 N COMPREHENSIVE METABOLIC [id number] 11:37:00* Test Item Value Reference Range Interpretation [...] code = ALKP) IUnit/L 45-117 CBC W/AUTO [id number] 11:29:00* Test Item Value Reference Range Interpretation [...] REQUIRED (test code = MDIFF) NO URINALYSIS [id number] 10:58:00* Test Item Value Reference Range Interpretation [...] HPF NONE Urine Source? Clean CatchUR HCG [id number] 10:58:00* Test Item Value Reference Range Interpretation Comments UR HCG QUAL (test code = HCGQLU) NEGATIVE This HCGQL test is NOT applicable for MALE patients.Check with nurse about probable order error.If Tumor Marker Test needed, nurse should order test "HCGTU"(Test #550.12669) Urine Source? Clean CatchURINALYSIS [id number] 10:53:00* Test Item Value Reference Range Interpretation [...] HPF 0-5 Urine Source? Clean CatchUR HCG [id number] 10:53:00* Test Item Value Reference Range Interpretation Comments UR HCG QUAL (test code = HCGQLU) NEGATIVE This HCGQL test is NOT applicable for MALE patients.Check with nurse about probable order error.If Tumor Marker Test needed, nurse should order test "HCGTU"(Test #550.92789) Urine Source? Clean CatchURINALYSIS [id number] 10:49:00* Test Item Value Reference Range Interpretation [...] HPF 0-5 Urine Source? Clean CatchUR HCG [id number] 10:49:00* Test Item Value Reference Range Interpretation Comments UR HCG QUAL (test code = HCGQLU) Urine Source? Clean CatchUrine [id number] 21:56:00* Test Item Value Reference Range Interpretation Comments Urine WBC (test code = 5821-4) 6-10 0-5 [facility] [id number] 21:56:00* Test Item Value Reference Range Interpretation Comments Urine RBC (test code = 04428-4) 11-20 0-5 H [facility] [id number] 21:56:00* Test Item Value Reference Range Interpretation Comments Urine Bacteria (test code = 75489-8) RARE NONE [facility] Epithelial [id number] 21:56:00 * Test Item Value Reference Range Interpretation Comments Urine Epithelial Cells (test code = 66215-0) MODERATE NONE [facility] [id number] 21:56:00* Test Item Value Reference Range Interpretation Comments Urine Mucus (test code = 8247-9) MANY RARE [facility] [id number] 21:41:00* Test Item Value Reference Range Interpretation Comments Urine Test (test code = 2106-3) NEGATIVE NEGATIVE [facility] [id number] 21:40:00* Test Item Value Reference Range Interpretation Comments Urine Color (test code = 5778-6) YELLOW YELLOW [facility] [id number] 21:40:00* Test Item Value Reference Range Interpretation Comments Urine Clarity (test code = 21752-3) SL CLOUDY CLEAR [facility] Specific [id number] 21:40:00 * Test Item Value Reference Range Interpretation Comments Urine Specific [place] (test code = 5811-5) 1.020 1.010-1.02 5 [facility] [id number] 21:40:00* Test Item Value Reference Range Interpretation Comments Urine pH (test code = 56921-6) 6 5-7 [facility] Leukocyte [id number] 21:40:00* Test Item Value Reference Range Interpretation Comments Urine Leukocyte Esterase (test code = 5799-2) TRACE NEGATIVE H [facility] [id number] 21:40:00* Test Item Value Reference Range Interpretation Comments Urine Nitrite (test code = 92021-4) NEGATIVE NEGATIVE [facility] [id number] 21:40:00* Test Item Value Reference Range Interpretation Comments Urine Protein (test code = 5804-0) TRACE NEGATIVE H [facility] Glucose (UA)2018-05-31 21:40:00* Test Item Value Reference Range Interpretation Comments Urine Glucose (UA) (test code = 2349-9) NEGATIVE NEGATIVE [facility] [id number] 21:40:00* Test Item Value Reference Range Interpretation Comments Urine Ketones (test code = 69722-1) NEGATIVE NEGATIVE [facility] Rdjwxgadvcbr9044-37-03 21:40:00* Test Item Value Reference Range Interpretation Comments Urine Urobilinogen (test code = 11239-8) 0.2 0.2-1 [facility] [id number] 21:40:00* Test Item Value Reference Range Interpretation Comments Urine Bilirubin (test code = 1978-6) NEGATIVE NEGATIVE [facility] [id number] 21:40:00* Test Item Value Reference Range Interpretation Comments Urine Blood (test code = 82997-1) 2+ NEGATIVE H [facility]
[2020-05-18] MEDS ORDERED: CEFDINIR300 MG PO (16:13)
[2020-05-18] MEDS ORDERED: ONDANSETRON ODT8 MG PO (16:14)
[2020-05-18] MEDS ORDERED: PHENAZOPYRIDIN100 MG PO (16:27)
[2020-05-18 16:41] VITALS: BP 144/85
== END 2020-05-18 17:46 | disposition home or self-care (01) ==
LOC: FSED 15:42
DX: R30.0 Dysuria (principal); N34.2 Other urethritis; R11.0 Nausea; M06.9 Rheumatoid arthritis, unspecified; I10 Essential (primary) hypertension; H54.8 Legal blindness, as defined in USA
CPT/HCPCS: 87086; 99283

== ENCOUNTER 2020-11-17 20:10 | Emergency (ER) | payer MEDICARE ==
[~2020-11-17] VITALS: Ht 149.9 cm; Wt 80.3 kg
[~2020-11-17 20:10] MED LIST changes: +CEFDINIR300 MG PO; +ONDANSETRON ODT8 MG PO; +PHENAZOPYRIDIN100 MG PO
[2020-11-17] MEDS ORDERED: LORAZEPAM INJ 2 MG/ML VIAL IV ONE (20:30)
[2020-11-17] MEDS ORDERED: LORAZEPAM INJ 2 MG/ML VIAL ONE (20:53)
[2020-11-17] MEDS ORDERED: SODIUM CHLORIDE 0.9% 50ML 50 ML ONE (21:34)
[2020-11-17] MEDS ORDERED: IOPAMIDOL 370 MG/ML 200 ML INFUS..BTL INJ ONE (21:35)
== END 2020-11-17 23:15 | disposition home or self-care (01) ==
LOC: FSED 20:31
DX: R06.00 Dyspnea, unspecified (principal); R07.9 Chest pain, unspecified; I10 Essential (primary) hypertension; M06.9 Rheumatoid arthritis, unspecified; H54.8 Legal blindness, as defined in USA
CPT/HCPCS: 71046; 71260; 80053; 81003; 81025; 82553; 83880; 84484; 85025; 85379; 99284; J2060; Q9967

== ENCOUNTER 2020-12-29 19:11 | Emergency (ER) | payer MEDICAID ==
[~2020-12-29] VITALS: Ht 149.9 cm; Wt 80.3 kg
[2020-12-29] MEDS ORDERED: MECLIZINE HCL 12.5 MG TAB PO ONE (19:45)
[2020-12-29] MEDS ORDERED: ONDANSETRON HCL 4 MG ORAL DISINTEGRATING TAB PO ONE (19:45)
[2020-12-29] MEDS ORDERED: PREDNISONE 20 MG TAB ONE (20:05)
[2020-12-29] MEDS ORDERED: CEFDINIR300 MG PO (20:39)
[2020-12-29] MEDS ORDERED: MECLIZINE HCL12.5 MG PO (20:39)
[2020-12-29] MEDS ORDERED: ONDANSETRON ODT4 MG PO (20:39)
[2020-12-29 20:50] VITALS: BP 140/95
[2020-12-30] MEDS ORDERED: PREDNISONE 10 MG TAB PO SCH (09:00)
== END 2020-12-29 20:50 | disposition home or self-care (01) ==
LOC: FSED 19:42
DX: R42 Dizziness and giddiness (principal); R11.0 Nausea; R30.0 Dysuria; N39.0 Urinary tract infection, site not specified; I10 Essential (primary) hypertension; F41.9 Anxiety disorder, unspecified; M06.9 Rheumatoid arthritis, unspecified; H54.8 Legal blindness, as defined in USA
CPT/HCPCS: 70450; 80053; 81025; 85025; 99284; J7512; J8597; Q0162

== ENCOUNTER 2021-07-27 18:48 | Emergency (ER) | payer MEDICAID ==
[~2021-07-27] VITALS: Ht 149.9 cm; Wt 77.6 kg
[~2021-07-27 18:48] MED LIST changes: +MECLIZINE HCL12.5 MG PO; +ONDANSETRON ODT4 MG PO
[2021-07-27] MEDS ORDERED: KETOROLAC TROMETHAMINE 30 MG/ML VIAL IV STA (19:01)
[2021-07-27] MEDS ORDERED: SODIUM CHLORIDE 0.9% 1000ML 1,000 ML ONE (20:21)
[2021-07-27] MEDS ORDERED: KETOROLAC TROMETHAMINE 30 MG/ML VIAL ONE (20:21)
[2021-07-27] MEDS ORDERED: KETOROLAC TROME10 MG PO (20:34)
[2021-07-27] MEDS ORDERED: CEFDINIR300 MG PO (20:34)
[2021-07-27] MEDS ORDERED: SODIUM CHLORIDE 0.9% 1000ML 1,000 ML IV STA (20:42)
[2021-07-27 21:00] VITALS: BP 140/99
== END 2021-07-27 21:00 | disposition home or self-care (01) ==
LOC: FSED 19:10
DX: R10.12 Left upper quadrant pain (principal); R10.32 Left lower quadrant pain; N20.0 Calculus of kidney; I10 Essential (primary) hypertension; M06.9 Rheumatoid arthritis, unspecified; H54.8 Legal blindness, as defined in USA
CPT/HCPCS: 74176; 81003; 81025; 99284; J1885; J7030

== ENCOUNTER 2025-04-09 03:50 | Emergency (ER) | payer MEDICAID, OTHER ==
[~2025-04-09] VITALS: Ht 149.9 cm; Wt 81.6 kg
[~2025-04-09 03:50] MED LIST changes: +BACLOFEN10 MG PO; +CELEBREX200 MG PO; +FOLIC ACID0.4 MG PO; +HYDROCHLOROTHIA25 MG PO; +KETOROLAC TROME10 MG PO; +LOSARTAN POTASS25 MG PO; +METHOTREXATE2.5 MG PO; +PREDNISONE5 MG PO; +SERTRALINE HCL50 MG PO; +SINGULAIR10 MG PO
[2025-04-09 03:54] VITALS: PULSE 101; RESP 18; TEMP 99
[2025-04-09 04:27] VITALS: BP 126/78; O2SAT 97
== END 2025-04-09 04:34 | disposition home or self-care (01) ==
LOC: FSED 03:54
DX: S80.11XA Contusion of right lower leg, initial encounter (principal); X58.XXXA Exposure to other specified factors, initial encounter; I10 Essential (primary) hypertension; M06.9 Rheumatoid arthritis, unspecified; F41.9 Anxiety disorder, unspecified; Z87.442 Personal history of urinary calculi
CPT/HCPCS: 99283